=== PATIENT | female | born 1935 | race Caucasian/White ===

== ENCOUNTER → 2017-02-16 | Outpatient (CLI) | payer MEDICARE, BC ==
--- NOTE | 2017-02-17 13:52 | MM ---
Reason for exam: screening (asymptomatic). Last mammogram was performed 1 year and 1 month ago. History: Patient is postmenopausal. Ultrasound-guided cyst aspiration of the left breast, April 16, 1999. Benign excisional biopsy of the left breast. Took estrogen for 8 years. Took progesterone for 8 years. Physical Findings: A clinical breast exam by your physician is recommended on an annual basis and results should be correlated with mammographic findings. MG Screening Mammo w CAD Bilateral CC and MLO view(s) were taken. Prior study comparison: January 30, 2016, bilateral MG screening mammo w CAD. There are scattered fibroglandular densities. No significant changes when compared with prior studies. ASSESSMENT: Benign, BI-RAD 2 RECOMMENDATION: Routine screening mammogram of both breasts in 1 year.
== END | disposition home or self-care (01) ==
LOC: RADMAMWWP 14:21
PROVIDERS: ATTEND Internal Medicine
DX: Z12.31 Encounter for screening mammogram for malignant neoplasm of breast (principal)

== ENCOUNTER → 2017-03-14 | Outpatient (CLI) | payer MEDICARE, BC ==
--- NOTE | 2017-03-14 12:49 | MR ---
EXAMINATION TYPE: MR brain wo/w con DATE OF EXAM: 03/14/2017 COMPARISON: 03/01/2015 HISTORY: 82-year-old female Follow up to existing meningoma TECHNIQUE: Multiplanar, multisequence images of the brain and brainstem were acquired before and aft er administration of 15 mL IV MultiHance. Diffusion weighted imaging is performed. FINDINGS: Redemonstrated left sphenoid wing and left cavernous sinus homogeneously enhancing extra-axial mass. This measures approximately 3.0 cm AP by 1.4 cm wide. There is some bony expansion along the floor of the medial left anterior cranial fossa with slight mass effect onto the underlying inferior left fro ntal lobe, similar to prior. Linear and nodular dural extension and enhancement both posterolaterally and posteromedially measurin g up to 9 mm to both the medial aspect of the middle cranial fossa and left suprasellar region is als o stable. No evidence for acute infarction, hemorrhage, midline shift, herniation, effacement of basal cisterns , or extra-axial fluid collection. The ventricles and sulci are age-appropriate with mild generalized supratentorial volume loss. The left cavernous sinus involvement of the patient's extra-axial mass leads to a similar mild narrow ing of the cavernous segment of the left ICA. The flow voids are maintained. T2/FLAIR weighted sequences show [id number]-[id number] scattered foci of bright white matter change within the subcortical, deep, and periventricular white matter of both cerebral hemispheres. These changes are stable Midline structures demonstrate normal morphology. The craniocervical junction is normal. Post contrast images demonstrate no other evidence of pathologic enhancement. Dural venous sinuses a re patent. Mild mucosal thickening ethmoid air cells. Globes are intact. Patient gaze is slightly divergent sugg esting underlying strabismus. IMPRESSION: 1. 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 Overall size of the homog eneously enhancing lesion and adjacent linear and nodular dural thickening is unchanged. 2. This continuous to cause mild diffuse narrowing of the cavernous segment of the left ICA. The flow void is maintained. 3. Stable tobv-lj-opryeayy scattered burden of chronic T2 bright white matter change likely reflectin g chronic small vessel ischemic disease.
== END | disposition home or self-care (01) ==
LOC: RADMRIMAIN 09:49
PROVIDERS: ATTEND Neurological Surgery
DX: D32.0 Benign neoplasm of cerebral meninges (principal); I65.22 Occlusion and stenosis of left carotid artery; R90.82 White matter disease, unspecified
CPT/HCPCS: 70553; A9577

== ENCOUNTER 2017-04-26 13:56 | Emergency (ER) | payer MEDICARE, BC ==
[2017-04-26 14:05] VITALS: BP 136/72; PULSE 68; RESP 18; TEMP 98
--- NOTE | 2017-04-26 14:22 | ED ---
General Adult HPI - General Chief complaint: Skin/Abscess/Foreign Body Stated complaint: left arm swelling; several bee stings Time Seen by Provider: 04/26/17 14:10 Source: patient, RN notes reviewed Mode of arrival: ambulatory Limitations: no limitations - History of Present Illness Initial comments: Patient 82-year-old female who presents emergency room today with a chief complaint of bee sting to the left arm. Patient does admit that a week ago she was stung in the left hand and left upper arm approximate 5 times. States that seem to get better. She states she was back outside of her house doing some gardening when she was stung again 3 times in left upper arm yesterday. Patient states she was talking to a friend at [facility] today who advised her that she should come to the hospital have it checked. She states she has been using Benadryl one tablet every 6 hours for the pain in itching. Patient states redness swelling has stayed the same over the last 24 hours. Patient denies any other complaints or symptoms. Denies any difficulty breathing or swallowing. Patient denies any recent fever, chills, shortness of breath, chest pain, back pain, abdominal pain, nausea or vomiting, numbness or tingling, dysuria or hematuria, constipation or diarrhea, headaches or visual changes, or any other complaints. - Related Data Home Medications Medication Instructions Recorded Confirmed ALPRAZolam [Xanax] 0.5 mg PO BID PRN 04/29/16 04/29/16 Ascorbic Acid [Vitamin C] 500 mg PO DAILY 04/29/16 04/29/16 Aspirin EC [Ecotrin] 325 mg PO DAILY 04/29/16 04/29/16 Atenolol [Tenormin] 50 mg PO DAILY 04/29/16 04/29/16 Cholecalciferol [Vitamin D3] 2,000 unit PO DAILY 04/29/16 04/29/16 Cyanocobalamin (Vitamin B-12) 2,000 mcg PO DAILY 04/29/16 04/29/16 [Vitamin B-12] Cyanocobalamin [Vitamin B-12] 500 mcg PO DAILY 04/29/16 04/29/16 Enalapril [Vasotec] 20 mg PO DAILY 04/29/16 04/29/16 Ezetimibe [Zetia] 10 mg PO DAILY 04/29/16 04/29/16 Fish/Flax/Borax Oil 1 cap PO DAILY 04/29/16 04/29/16 L.acidoph,Paracasei, B.lactis 1 cap PO DAILY 04/29/16 04/29/16 [Probiotic] Latanoprost Ophth [Xalatan 0.005%] 1 drops BOTH EYES HS 04/29/16 04/29/16 Levothyroxine Sodium [Synthroid] 50 mcg PO DAILY 04/29/16 04/29/16 Multivit-Min/Iron/Folic/Lutein 1 tab PO DAILY 04/29/16 04/29/16 [Centrum Silver Women Tablet] Naphazoline HCl/Glycerin [Clear 1 drop BOTH EYES DAILY PRN 04/29/16 04/29/16 Eyes Max Redness Rlf Drp] Ranitidine HCl 150 mg PO BID 04/29/16 04/29/16 Ubidecarenone [Co Q-10] 100 mg PO DAILY 04/29/16 04/29/16 Vitamin E 1,000 unit PO DAILY 04/29/16 04/29/16 Previous Rx's Medication Instructions Recorded Azithromycin [Zithromax] 500 mg PO DAILY #5 tab 05/01/16 Hydrocortisone Cream 1 applic TOPICAL TID #1 cream..g. 04/26/17 [Hydrocortisone 1% Cream] Allergies Allergy/AdvReac Type Severity Reaction Status Date / Time acetaminophen [From Talacen] Allergy Unknown Verified 04/29/16 09:30 amoxicillin Allergy Unknown Verified 04/29/16 09:30 amoxicillin trihydrate Allergy Unknown Verified 04/29/16 09:30 [From Augmentin] carisoprodol [From Soma] Allergy Unknown Verified 04/29/16 09:30 ciprofloxacin [From Cipro] Allergy Unknown Verified 04/29/16 09:30 ciprofloxacin HCl Allergy Unknown Verified 04/29/16 09:30 [From Cipro] clindamycin HCl Allergy Unknown Verified 04/29/16 09:30 [From Cleocin] clindamycin palmitate HCl Allergy Unknown Verified 04/29/16 09:30 [From Cleocin] clindamycin phosphate Allergy Unknown Verified 04/29/16 09:30 [From Cleocin] cyclobenzaprine HCl Allergy Unknown Verified 04/29/16 09:30 [From Flexeril] fentanyl Allergy Unknown Verified 04/29/16 09:30 hydrocodone bitartrate Allergy Unknown Verified 04/29/16 09:30 [From Vicodin] pentazocine HCl Allergy Unknown Verified 04/29/16 09:30 [From Talacen] pentazocine lactate Allergy Unknown Verified 04/29/16 09:30 [From Talwin] potassium clavulanate Allergy Unknown Verified 04/29/16 09:30 [From Augmentin] Sulfa (Sulfonamide Allergy Unknown Verified 04/29/16 09:30 Antibiotics) sulfacetamide sodium Allergy Unknown Verified 04/29/16 09:30 [From Clarifoam EF] sulfamethoxazole Allergy Unknown Verified 04/29/16 09:30 [From Bactrim] sulfur [From Clarifoam EF] Allergy Unknown Verified 04/29/16 09:30 tramadol HCl [From Ultram] Allergy Unknown Verified 04/29/16 09:30 trimethoprim [From Bactrim] Allergy Unknown Verified 04/29/16 09:30 hexadrol Allergy Unknown Uncoded 04/29/16 09:30 Review of Systems ROS Statement: Those systems with pertinent positive or pertinent negative responses have been documented in the HPI. ROS Other: All systems not noted in ROS Statement are negative. Past Medical History Past Medical History: CVA/TIA, Eye Disorder, GERD/Reflux, Hyperlipidemia, Hypertension, Pneumonia, Thyroid Disorder Additional Past Medical History / Comment(s): 12/2014 TIA, bilateral glaucoma, benign brain tumor behind L ear, pancreatitis prior to cholecystectomy. History of Any Multi-Drug Resistant Organisms: None Reported Past Surgical History: Back Surgery, Cholecystectomy, Orthopedic Surgery Additional Past Surgical History / Comment(s): L CAROTID ENDartectomy, low back surgery x3, R carpal tunnel release, R rotator cuff repair, colonoscopy-normal. Past Anesthesia/Blood Transfusion Reactions: No Reported Reaction Past Psychological History: Depression Smoking Status: Never smoker Past Alcohol Use History: Rare Past Drug Use History: None Reported - Past Family History Mother Additional Family Medical History / Comment(s): Mother had alot of bronchitis. She at the age of 81 yrs. Father Family Medical History: Cancer Additional Family Medical History / Comment(s): Father of throat cancer at the age of 78 yrs. General Exam - General Exam Comments Initial Comments: General: The patient is awake and alert, in no distress, and does not appear acutely ill. Neck: The neck is supple, there is no tenderness or JVD. Cardiovascular: There is a regular rate and rhythm. No murmur, rub or gallop is appreciated. Respiratory: Lungs are clear to auscultation, respirations are non-labored, breath sounds are equal. No wheezes, stridor, rales, or rhonchi. Musculoskeletal: Full range motion. Sensation intact. Pulses equal bilaterally 2+. Strength 5/5. Neurological: A&O x 3. CN II-XII intact, There are no obvious motor or sensory deficits. Coordination appears grossly intact. Speech is normal. Skin: Mild redness to the left medial upper arm. No lymphangitic streaking. Psychiatric: Normal mood and affect. Limitations: no limitations Course Vital Signs 04/26/17 14:01 Temperature 98.0 F Pulse Rate 68 Respiratory 18 Rate Blood Pressure 136/72 O2 Sat by Pulse 97 Oximetry Medical Decision Making - Medical Decision Making Patient advised continue Benadryl one to tabs every 6 hours. Advised to add Pepcid. Will be given a topical steroid. At this time. Clinical exam consistent with a local reaction to bee stings. Disposition Clinical Impression: Bee sting reaction Disposition: HOME SELF-CARE Condition: Good Instructions: Insect Bite or Sting (ED) Additional Instructions: Please continue Benadryl one to 2 tablets every 6 hours. Please use Pepcid 1 tablet twice a day. Please use topical steroids as prescribed. Please follow- up with family doctor in the next 2 days of symptoms have not improved. Please return to emergency room if the symptoms increase or worsen or for any other concerns. Prescriptions: Hydrocortisone Cream [Hydrocortisone 1% Cream] 1 applic TOPICAL TID #1 cream..g. Referrals: Aurelio Barton MD [Primary Care Provider] - 1-2 days Time of Disposition: 14:21
== END 2017-04-26 14:33 | disposition home or self-care (01) ==
LOC: EC 13:56
DX: T63.441A Toxic effect of venom of bees, accidental (unintentional), initial encounter (principal); K21.9 Gastro-esophageal reflux disease without esophagitis; E78.5 Hyperlipidemia, unspecified; I10 Essential (primary) hypertension; E07.9 Disorder of thyroid, unspecified; F32.9 Major depressive disorder, single episode, unspecified; H40.9 Unspecified glaucoma; Z86.73 Personal history of transient ischemic attack (TIA), and cerebral infarction without residual deficits; Z88.0 Allergy status to penicillin; Z88.1 Allergy status to other antibiotic agents; Z88.2 Allergy status to sulfonamides; Z88.5 Allergy status to narcotic agent; Z88.8 Allergy status to other drugs, medicaments and biological substances; Z79.82 Long term (current) use of aspirin; Z79.899 Other long term (current) drug therapy
CPT/HCPCS: 99282

== ENCOUNTER → 2018-03-18 | Outpatient (CLI) | payer MEDICARE, BC ==
--- NOTE | 2018-03-19 10:32 | MM ---
Reason for exam: screening (asymptomatic). Last mammogram was performed 1 year and 1 month ago. History: Patient is postmenopausal. Ultrasound-guided cyst aspiration of the left breast, April 16, 1999. Benign excisional biopsy of the left breast. Took estrogen for 8 years. Took progesterone for 8 years. Physical Findings: A clinical breast exam by your physician is recommended on an annual basis and results should be correlated with mammographic findings. MG 3D Screening Mammo W/Cad Bilateral CC and MLO view(s) were taken. Prior study comparison: February 16, 2017, bilateral MG screening mammo w CAD. January 30, 2016, bilateral MG screening mammo w CAD. There are scattered fibroglandular densities. Stable benign calcifications. New nodule 8 cm from nipple upper left breast. ASSESSMENT: Incomplete: need additional imaging evaluation, BI-RAD 0 RECOMMENDATION: Special view mammogram of the left breast. If lesion persists on supplemental views, image directed ultrasound is recommended. [facility] will attempt to contact patient to return for supplemental views and ultrasound if indicated.
== END | disposition home or self-care (01) ==
LOC: RADMAMWWP 09:09
PROVIDERS: ATTEND Internal Medicine
DX: Z12.31 Encounter for screening mammogram for malignant neoplasm of breast (principal)
CPT/HCPCS: 77063; 77067

== ENCOUNTER → 2018-03-31 | Outpatient (CLI) | payer MEDICARE, BC ==
--- NOTE | 2018-03-31 10:30 | MM ---
Reason for exam: additional evaluation requested from abnormal screening. Last mammogram was performed less than 1 month ago. History: Patient is postmenopausal. Ultrasound-guided cyst aspiration of the left breast, April 16, 1999. Benign excisional biopsy of the left breast. Took estrogen for 8 years. Took progesterone for 8 years. Physical Findings: Nurse did not find any significant physical abnormalities on exam. MG 3D Work Up W/Cad LT Spot compression CC, spot compression MLO, and ML view(s) were taken of the left breast. Prior study comparison: March 18, 2018, bilateral MG 3d screening mammo w/cad. February 16, 2017, bilateral MG screening mammo w CAD. There are scattered fibroglandular densities. Finding: There is a 4 mm high density, circumscribed round mass located 9 cm from the nipple in the 11 o'clock upper inner quadrant, middle position of the left breast. These results were verbally communicated with the patient and result sheet given to the patient on 03/31/18. ASSESSMENT: Incomplete: need additional imaging evaluation, BI-RAD 0 RECOMMENDATION: Ultrasound of the left breast.
--- NOTE | 2018-03-31 10:31 | USB ---
Reason for exam: additional evaluation requested from abnormal screening. History: Patient is postmenopausal. Ultrasound-guided cyst aspiration of the left breast, April 16, 1999. Benign excisional biopsy of the left breast. Took estrogen for 8 years. Took progesterone for 8 years. US Breast Workup Limited LT Left limited breast ultrasound including focal area of concern, retroareolar and axilla demonstrates a 6 x 2 x 5mm lobular, hypoechoic lesion at 11 o'clock. These results were verbally communicated with the patient and result sheet given to the patient on 03/31/18. ASSESSMENT: Probably benign, BI-RAD 3 RECOMMENDATION: Follow-up diagnostic mammogram and ultrasound of the left breast in 6 months.
== END | disposition home or self-care (01) ==
LOC: RADMAMWWP 08:50
PROVIDERS: ATTEND Internal Medicine
DX: R92.8 Other abnormal and inconclusive findings on diagnostic imaging of breast (principal)
CPT/HCPCS: 77065; 76642; G0279; 77061

== ENCOUNTER → 2018-06-22 | Outpatient (CLI) | payer MEDICARE, BC ==
--- NOTE | 2018-06-22 09:31 | US ---
EXAMINATION TYPE: US liver DATE OF EXAM: 06/22/2018 COMPARISON: CT 2016 CLINICAL HISTORY: R94.5 Abnormal Results Of Liver Function Studies. EXAM MEASUREMENTS: Liver Length: 16.8 cm Gallbladder Wall: Surgically absent cm CBD: 0.3 cm Right Kidney: 11.1 x 4.0 x 4.8 cm Pancreas: Obscured by bowel gas Liver: small cyst left hepatic lobe with increased through transmission measuring 1.0 x 1.0 x 1.0 cm. There is increased echogenicity of the hepatic parenchyma with diminished visualization of the krysten l triads most commonly relating to hepatic steatosis and limiting evaluation for underlying hepatic m asses. Gallbladder: Surgically absent Evidence for sonographic Barger's sign: No CBD: wnl Right Kidney: No hydronephrosis or masses seen IMPRESSION: Sonographic findings most commonly related to hepatic steatosis (appearing moderate in de gree) with solitary 1 cm cystic left hepatic lobe lesion. This is highly favored to be benign, clementinee r was not seen on the prior CT dated 2015 and therefore short-term follow-up could be performed in 6 months to ensure stability.
== END | disposition home or self-care (01) ==
LOC: RADUSWWP 08:39
PROVIDERS: ATTEND Internal Medicine
DX: K76.89 Other specified diseases of liver (principal)
CPT/HCPCS: 76705

== ENCOUNTER 2018-06-24 09:09 | Observation (INO) | payer MEDICARE, BC ==
--- NOTE | 2018-06-24 09:36 | ED ---
General Adult HPI - General Chief complaint: Chest Pain Stated complaint: chest/back pain Time Seen by Provider: 06/24/18 09:16 Source: patient, RN notes reviewed, old records reviewed Mode of arrival: ambulatory Limitations: no limitations - History of Present Illness Initial comments: 83-year-old female presents for evaluation of chest pain. Patient's pain began yesterday evening approximately 12 hours prior to arrival. Described as substernal aching pain with some radiation to her back. Patient states the pain has been constant since onset. She went to her primary care's office this morning and was sent to the emergency department for evaluation. Denies dyspnea. Denies cough or fever or chills. Patient had previous cholecystectomy and recent liver ultrasound for elevated liver enzymes. No known history of CAD. No history DVT or PE. Denies lower extremity pain or swelling. Pain is moderate in nature. - Related Data Home Medications Medication Instructions Recorded Confirmed ALPRAZolam [Xanax] 0.5 mg PO BID PRN 04/29/16 06/24/18 Aspirin EC [Ecotrin] 325 mg PO DAILY 04/29/16 06/24/18 Atenolol [Tenormin] 50 mg PO DAILY 04/29/16 06/24/18 Enalapril [Vasotec] 20 mg PO DAILY 04/29/16 06/24/18 Ezetimibe [Zetia] 10 mg PO DAILY 04/29/16 06/24/18 Latanoprost Ophth [Xalatan 0.005%] 1 drops BOTH EYES HS 04/29/16 06/24/18 Multivit-Min/Iron/Folic/Lutein 1 tab PO DAILY 04/29/16 06/24/18 [Centrum Silver Women Tablet] Pantoprazole Sodium [Protonix] 40 mg PO DAILY 04/26/17 06/24/18 amLODIPine [Norvasc] 2.5 mg PO DAILY 04/26/17 06/24/18 Ascorbic Acid [Vitamin C] 1,000 mg PO DAILY 06/24/18 06/24/18 Cyanocobalamin (Vitamin B-12) 5,000 mcg PO DAILY 06/24/18 06/24/18 [Vitamin B-12] Dorzolamide-Timol 2.23%/0.68% 1 drop BOTH EYES BID 06/24/18 06/24/18 [Cosopt] Ergocalciferol [Vitamin D2] 50,000 unit PO Q7D 06/24/18 06/24/18 Furosemide [Lasix] 20 mg PO DAILY 06/24/18 06/24/18 Levothyroxine Sodium [Synthroid] 50 mcg PO DAILY 06/24/18 06/24/18 [place]-3 Fatty Acids/Fish Oil [Fish 1 cap PO DAILY 06/24/18 06/24/18 Oil 1,000 mg Softgel] Potassium Chloride [Klor-Con 10] 10 meq PO DAILY 06/24/18 06/24/18 Vitamin E 1,000 unit PO DAILY 06/24/18 06/24/18 Allergies Allergy/AdvReac Type Severity Reaction Status Date / Time acetaminophen [From Talacen] Allergy Unknown Verified 06/24/18 09:42 amoxicillin Allergy Unknown Verified 06/24/18 09:42 amoxicillin trihydrate Allergy Unknown Verified 06/24/18 09:42 [From Augmentin] carisoprodol [From Soma] Allergy Unknown Verified 06/24/18 09:42 ciprofloxacin [From Cipro] Allergy Unknown Verified 06/24/18 09:42 ciprofloxacin HCl Allergy Unknown Verified 06/24/18 09:42 [From Cipro] clindamycin HCl Allergy Unknown Verified 06/24/18 09:42 [From Cleocin] clindamycin palmitate HCl Allergy Unknown Verified 06/24/18 09:42 [From Cleocin] clindamycin phosphate Allergy Unknown Verified 06/24/18 09:42 [From Cleocin] cyclobenzaprine HCl Allergy Unknown Verified 06/24/18 09:42 [From Flexeril] fentanyl Allergy Unknown Verified 06/24/18 09:42 hydrocodone bitartrate Allergy Unknown Verified 06/24/18 09:42 [From Vicodin] pentazocine HCl Allergy Unknown Verified 06/24/18 09:42 [From Talacen] pentazocine lactate Allergy Unknown Verified 06/24/18 09:42 [From Talwin] potassium clavulanate Allergy Unknown Verified 06/24/18 09:42 [From Augmentin] Sulfa (Sulfonamide Allergy Unknown Verified 06/24/18 09:42 Antibiotics) sulfacetamide sodium Allergy Unknown Verified 06/24/18 09:42 [From Clarifoam EF] sulfamethoxazole Allergy Unknown Verified 06/24/18 09:42 [From Bactrim] sulfur [From Clarifoam EF] Allergy Unknown Verified 06/24/18 09:42 tramadol HCl [From Ultram] Allergy Unknown Verified 06/24/18 09:42 trimethoprim [From Bactrim] Allergy Unknown Verified 06/24/18 09:42 hexadrol Allergy Unknown Uncoded 04/29/16 09:30 Review of Systems ROS Statement: Those systems with pertinent positive or pertinent negative responses have been documented in the HPI. ROS Other: All systems not noted in ROS Statement are negative. Past Medical History Past Medical History: CVA/TIA, Eye Disorder, GERD/Reflux, Hyperlipidemia, Hypertension, Pneumonia, Thyroid Disorder Additional Past Medical History / Comment(s): 12/2014 TIA, bilateral glaucoma, benign brain tumor behind L ear, pancreatitis prior to cholecystectomy. History of Any Multi-Drug Resistant Organisms: None Reported Past Surgical History: Back Surgery, Cholecystectomy, Orthopedic Surgery Additional Past Surgical History / Comment(s): L CAROTID ENDartectomy, low back surgery x3, R carpal tunnel release, R rotator cuff repair, colonoscopy-normal. Past Anesthesia/Blood Transfusion Reactions: No Reported Reaction Past Psychological History: Depression Smoking Status: Never smoker Past Alcohol Use History: Rare Past Drug Use History: None Reported - Past Family History Mother Additional Family Medical History / Comment(s): Mother had alot of bronchitis. She at the age of 81 yrs. Father Family Medical History: Cancer Additional Family Medical History / Comment(s): Father of throat cancer at the age of 78 yrs. General Exam Limitations: no limitations General appearance: alert Head exam: Present: atraumatic, normocephalic Eye exam: Present: normal appearance, PERRL, EOMI ENT exam: Present: normal exam Neck exam: Present: normal inspection. Absent: tenderness, meningismus Respiratory exam: Present: normal lung sounds bilaterally. Absent: respiratory distress, wheezes, chest wall tenderness Cardiovascular Exam: Present: regular rate, normal rhythm GI/Abdominal exam: Present: soft. Absent: distended, tenderness Extremities exam: Present: normal inspection, normal capillary refill, other ( Bilateral radial pulses 2+, bilateral DP pulses 2+). Absent: pedal edema Back exam: Present: normal inspection, full ROM. Absent: tenderness Neurological exam: Present: alert, oriented X3, CN II-XII intact. Absent: motor sensory deficit Psychiatric exam: Present: normal affect, normal mood Skin exam: Present: warm, dry, intact. Absent: cyanosis, diaphoretic Course Vital Signs 06/24/18 09:12 Temperature 98.4 F Pulse Rate 71 Respiratory 20 Rate Blood Pressure 151/79 O2 Sat by Pulse 98 Oximetry EKG Findings - EKG Comments: EKG Findings:: EKG: Normal sinus rhythm, left axis deviation, LVH, rate of 62, IL interval 204, QRS duration 98, QTC 414 Medical Decision Making - Medical Decision Making 83-year-old female presenting for evaluation of chest pain. EKG is normal sinus with no ST segment elevation. Symptoms have been present for the past 12 hours. Patient has normal CBC, CMP is significant for elevated AST and PLT. Troponin is negative which is reassuring as patient's symptoms have been present for 12 hours. Chest x-ray shows some left basilar atelectasis no other acute findings. Patient will be kept in observation for both GI and cardiology consultation. Case discussed with the admitting physician who will accept. - Lab Data Result diagrams: 06/24/18 09:41 06/24/18 09:41 Lab Results 06/24/18 06/24/18 06/24/18 Range/Units 09:41 09:41 09:41 WBC 10.3 (3.8-10.6) k/uL RBC 4.65 (3.80-5.40) m/uL Hgb 15.3 (11.4-16.0) gm/dL Hct 44.7 (34.0-46.0) % MCV 96.1 D (80.0-100.0) fL MCH 33.0 (25.0-35.0) pg MCHC 34.3 (31.0-37.0) g/dL RDW 12.4 (11.5-15.5) % Plt Count 226 (150-450) k/uL Neutrophils % 63 % Lymphocytes % 24 % Monocytes % 8 % Eosinophils % 2 % Basophils % 1 % Neutrophils # 6.5 (1.3-7.7) k/uL Lymphocytes # 2.5 (1.0-4.8) k/uL Monocytes # 0.8 (0-1.0) k/uL Eosinophils # 0.2 (0-0.7) k/uL Basophils # 0.1 (0-0.2) k/uL PT (9.0-12.0) sec INR (<1.2) APTT (22.0-30.0) sec Sodium 138 (137-145) mmol/L Potassium 5.1 (3.5-5.1) mmol/L Chloride 104 (98-107) mmol/L Carbon Dioxide 23 (22-30) mmol/L Anion Gap 11 mmol/L BUN 27 H (7-17) mg/dL Creatinine 0.63 (0.52-1.04) mg/dL Est GFR (CKD-EPI)AfAm >90 (>60 ml/min/1.73 sqM) Est GFR (CKD-EPI)NonAf 84 (>60 ml/min/1.73 sqM) Glucose 205 H (74-99) mg/dL Calcium 10.2 (8.4-10.2) mg/dL Magnesium 1.9 (1.6-2.3) mg/dL Total Bilirubin 0.8 (0.2-1.3) mg/dL AST 126 H (14-36) U/L ALT 112 H (9-52) U/L Alkaline Phosphatase 100 (38-126) U/L Total Creatine Kinase 130 (30-135) U/L CK-MB (CK-2) 3.0 H (0.0-2.4) ng/mL CK-MB (CK-2) Rel Index 2.3 Troponin I <0.012 (0.000-0.034) ng/mL NT-Pro-B Natriuret Pep pg/mL Total Protein 7.7 (6.3-8.2) g/dL Albumin 4.3 (3.5-5.0) g/dL Lipase 120 (23-300) U/L 06/24/18 06/24/18 Range/Units 09:41 09:41 WBC (3.8-10.6) k/uL RBC (3.80-5.40) m/uL Hgb (11.4-16.0) gm/dL Hct (34.0-46.0) % MCV (80.0-100.0) fL MCH (25.0-35.0) pg MCHC (31.0-37.0) g/dL RDW (11.5-15.5) % Plt Count (150-450) k/uL Neutrophils % % Lymphocytes % % Monocytes % % Eosinophils % % Basophils % % Neutrophils # (1.3-7.7) k/uL Lymphocytes # (1.0-4.8) k/uL Monocytes # (0-1.0) k/uL Eosinophils # (0-0.7) k/uL Basophils # (0-0.2) k/uL PT 10.3 (9.0-12.0) sec INR 1.1 (<1.2) APTT 24.1 (22.0-30.0) sec Sodium (137-145) mmol/L Potassium (3.5-5.1) mmol/L Chloride (98-107) mmol/L Carbon Dioxide (22-30) mmol/L Anion Gap mmol/L BUN (7-17) mg/dL Creatinine (0.52-1.04) mg/dL Est GFR (CKD-EPI)AfAm (>60 ml/min/1.73 sqM) Est GFR (CKD-EPI)NonAf (>60 ml/min/1.73 sqM) Glucose (74-99) mg/dL Calcium (8.4-10.2) mg/dL Magnesium (1.6-2.3) mg/dL Total Bilirubin (0.2-1.3) mg/dL AST (14-36) U/L ALT (9-52) U/L Alkaline Phosphatase (38-126) U/L Total Creatine Kinase (30-135) U/L CK-MB (CK-2) (0.0-2.4) ng/mL CK-MB (CK-2) Rel Index Troponin I (0.000-0.034) ng/mL NT-Pro-B Natriuret Pep 55 pg/mL Total Protein (6.3-8.2) g/dL Albumin (3.5-5.0) g/dL Lipase (23-300) U/L Disposition Clinical Impression: Chest pain Disposition: ADMITTED IP TO THIS [facility] Condition: Stable Is patient prescribed a controlled substance at d/c from ED?: No Referrals: Aurelio Barton MD [Primary Care Provider] - 1-2 days Decision to Admit Reason: Admit from EC Decision Date: 06/24/18 Decision Time: 11:28
--- NOTE | 2018-06-24 10:15 | XR ---
EXAMINATION TYPE: XR chest 2V DATE OF EXAM: 06/24/2018 COMPARISON: 04/29/2016 HISTORY: 83-year-old female chest pain TECHNIQUE: PA and lateral views FINDINGS: Heart normal size. Aorta and pulmonary vasculature within normal limits. Strandy atelectasis at the l eft base. No consolidation or pleural effusion. IMPRESSION: Some strandy left basilar atelectasis. No acute cardiopulmonary process.
[2018-06-24 10:18] LABS: Albumin 4.3 g/dL (3.5-5.0); Anion Gap 11 mmol/L; Basophils # (A) 0.1 k/uL (0-0.2); Basophils % (A) 1 %; Blood Urea Nitrogen 27 mg/dL (7-17); Calcium 10.2 mg/dL (8.4-10.2); Carbon Dioxide 23 mmol/L (22-30); Chloride 104 mmol/L (98-107); Eosinophils # (A) 0.2 k/uL (0-0.7); Eosinophils % (A) 2 %; Glucose 205 mg/dL (74-99); HCT 44.7 % (34.0-46.0); HGB 15.3 gm/dL (11.4-16.0); Lipase 120 U/L (23-300); Lymphocytes # (A) 2.5 k/uL (1.0-4.8); Lymphocytes % (A) 24 %; MCHC 34.3 g/dL (31.0-37.0); Mean Platelet Volume 7.5; Monocytes # (A) 0.8 k/uL (0-1.0); Monocytes % (A) 8 %; Neutrophils # (A) 6.5 k/uL (1.3-7.7); Neutrophils % (A) 63 %; Platelet Count 226 k/uL (150-450); RBC 4.65 m/uL (3.80-5.40); RDW 12.4 % (11.5-15.5); Sodium 138 mmol/L (137-145); Total Bilirubin 0.8 mg/dL (0.2-1.3); Total Protein 7.7 g/dL (6.3-8.2); WBC 10.3 k/uL (3.8-10.6)
[2018-06-24 10:19] LABS: MCV 96.1 fL (80.0-100.0)
[2018-06-24 10:20] LABS: INR 1.1 (<1.2); Prothrombin Time 10.3 sec (9.0-12.0)
[2018-06-24 10:21] LABS: Partial Thromboplastin Time 24.1 sec (22.0-30.0)
[2018-06-24 10:26] LABS: ALT 112 U/L (9-52); AST 126 U/L (14-36); Alkaline Phosphatase 100 U/L (38-126); Magnesium 1.9 mg/dL (1.6-2.3); Potassium 5.1 mmol/L (3.5-5.1)
[2018-06-24 10:35] LABS: Creatine Kinase 130 U/L (30-135)
[2018-06-24 10:48] LABS: Troponin I <0.012 ng/mL (0.000-0.034)
[2018-06-24] MEDS ORDERED: NALOXONE 0.4 MG/ML 1 ML VIAL IV PRN (11:24)
--- NOTE | 2018-06-24 15:14 | P.HPIM ---
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 Patient also had a left carotid and 2 lower back surgeries. Denies any alcohol or tobacco use. Patient reports around 9:30 last night she started to have chest pains in the sternal area of her chest. It radiated to the back and around her bra line. Patient reports that she did not sleep well during the night because of the pain. She went to see Dr. Barton in the office early this morning and was referred to the ER. In first troponin is negative. EKG normal sinus rhythm. Chest x-ray showing left basilar atelectasis. She was found to have elevated AST of 126 and ALT 112. She had liver ultrasound completed on 06/22/2018 outpatient due to elevated liver enzymes and report did show hepatic steatosis with a solitary 1 cm cystic hepatic lobe lesion which was likely benign but they recommend recheck in 6 months. Her lipase is normal. On exam she does have epigastric tenderness with palpation. Both GI service and cardiology have been consulted. Patient denies any fever, chills, sweats, nausea or vomiting. Denies any bowel movement changes or urinary symptoms. She does report some increase in shortness of breath with activity. Patient reports her last EGD and colonoscopy about a year and a half ago. She reports the EGD was normal. On colonoscopy she reported a dilated vein in the colon that had bled. Review of Systems Please refer to HPI otherwise unremarkable Past Medical History Past Medical History: CVA/TIA, Eye Disorder, GERD/Reflux, Hyperlipidemia, Hypertension, Pneumonia, Thyroid Disorder, Vascular Disorder Additional Past Medical History / Comment(s): Recent elevated LFT/had recent ultrasound, 12/2014 TIA, bilateral glaucoma and cataracts, benign brain tumor behind L ear, pancreatitis prior to cholecystectomy, hypothyroid, diverticular dx. History of Any Multi-Drug Resistant Organisms: None Reported Past Surgical History: Back Surgery, Cholecystectomy, Orthopedic Surgery Additional Past Surgical History / Comment(s): L caratid endartectomy, low back surgery x3, R carpal tunnel release, R rotator cuff repair, colonoscopy-normal. Past Anesthesia/Blood Transfusion Reactions: Postoperative Nausea & Vomiting ( PONV) Smoking Status: Never smoker - Past Family History Mother Additional Family Medical History / Comment(s): Mother had alot of bronchitis. She at the age of 81 yrs. Father Family Medical History: Cancer Additional Family Medical History / Comment(s): Father of throat cancer at the age of 78 yrs. Medications and Allergies Home Medications Medication Instructions Recorded Confirmed Type ALPRAZolam [Xanax] 0.5 mg PO BID PRN 04/29/16 06/24/18 History Aspirin EC [Ecotrin] 325 mg PO DAILY 04/29/16 06/24/18 History Atenolol [Tenormin] 50 mg PO DAILY 04/29/16 06/24/18 History Enalapril [Vasotec] 20 mg PO DAILY 04/29/16 06/24/18 History Ezetimibe [Zetia] 10 mg PO DAILY 04/29/16 06/24/18 History Latanoprost Ophth [Xalatan 0.005%] 1 drops BOTH EYES HS 04/29/16 06/24/18 History Multivit-Min/Iron/Folic/Lutein 1 tab PO DAILY 04/29/16 06/24/18 History [Centrum Silver Women Tablet] Pantoprazole Sodium [Protonix] 40 mg PO DAILY 04/26/17 06/24/18 History amLODIPine [Norvasc] 2.5 mg PO DAILY 04/26/17 06/24/18 History Ascorbic Acid [Vitamin C] 1,000 mg PO DAILY 06/24/18 06/24/18 History Cyanocobalamin (Vitamin B-12) 5,000 mcg PO DAILY 06/24/18 06/24/18 History [Vitamin B-12] Dorzolamide-Timol 2.23%/0.68% 1 drop BOTH EYES BID 06/24/18 06/24/18 History [Cosopt] Ergocalciferol [Vitamin D2] 50,000 unit PO Q7D 06/24/18 06/24/18 History Furosemide [Lasix] 20 mg PO DAILY 06/24/18 06/24/18 History Levothyroxine Sodium [Synthroid] 50 mcg PO DAILY 06/24/18 06/24/18 History [place]-3 Fatty Acids/Fish Oil [Fish 1 cap PO DAILY 06/24/18 06/24/18 History Oil 1,000 mg Softgel] Potassium Chloride [Klor-Con 10] 10 meq PO DAILY 06/24/18 06/24/18 History Vitamin E 1,000 unit PO DAILY 06/24/18 06/24/18 History Allergies Allergy/AdvReac Type Severity Reaction Status Date / Time acetaminophen [From Talacen] Allergy Unknown Verified 06/24/18 09:42 amoxicillin Allergy Unknown Verified 06/24/18 09:42 amoxicillin trihydrate Allergy Unknown Verified 06/24/18 09:42 [From Augmentin] carisoprodol [From Soma] Allergy Unknown Verified 06/24/18 09:42 ciprofloxacin [From Cipro] Allergy Unknown Verified 06/24/18 09:42 ciprofloxacin HCl Allergy Unknown Verified 06/24/18 09:42 [From Cipro] clindamycin HCl Allergy Unknown Verified 06/24/18 09:42 [From Cleocin] clindamycin palmitate HCl Allergy Unknown Verified 06/24/18 09:42 [From Cleocin] clindamycin phosphate Allergy Unknown Verified 06/24/18 09:42 [From Cleocin] cyclobenzaprine HCl Allergy Unknown Verified 06/24/18 09:42 [From Flexeril] fentanyl Allergy Unknown Verified 06/24/18 09:42 hydrocodone bitartrate Allergy Unknown Verified 06/24/18 09:42 [From Vicodin] pentazocine HCl Allergy Unknown Verified 06/24/18 09:42 [From Talacen] pentazocine lactate Allergy Unknown Verified 06/24/18 09:42 [From Talwin] potassium clavulanate Allergy Unknown Verified 06/24/18 09:42 [From Augmentin] Sulfa (Sulfonamide Allergy Unknown Verified 06/24/18 09:42 Antibiotics) sulfacetamide sodium Allergy Unknown Verified 06/24/18 09:42 [From Clarifoam EF] sulfamethoxazole Allergy Unknown Verified 06/24/18 09:42 [From Bactrim] sulfur [From Clarifoam EF] Allergy Unknown Verified 06/24/18 09:42 tramadol HCl [From Ultram] Allergy Unknown Verified 06/24/18 09:42 trimethoprim [From Bactrim] Allergy Unknown Verified 06/24/18 09:42 hexadrol Allergy Unknown Uncoded 04/29/16 09:30 Physical Exam Vitals: Vital Signs Temp Pulse Resp BP Pulse Ox 06/24/18 13:29 97.9 F 58 L 18 126/68 98 06/24/18 09:12 98.4 F 71 20 151/79 98 Intake and Output 06/24/18 06/24/18 06/24/18 06:59 14:59 22:59 Other: Weight 86.183 kg Head normocephalic Neck supple Lungs clear to auscultation bilaterally no wheezing or crackles Heart regular rate and rhythm S1-S2, no rub or gallop Abdomen is soft epigastric tenderness tender along the right rib cage nondistended positive bowel sounds no hepatosplenomegaly Extremities no edema Neuro alert and orientated to 3 Results CBC & Chem 7: 06/24/18 09:41 06/24/18 09:41 Labs: Abnormal Lab Results - Last 24 Hours (Table) 06/24/18 06/24/18 Range/Units 09:41 09:41 BUN 27 H (7-17) mg/dL Glucose 205 H (74-99) mg/dL AST 126 H (14-36) U/L ALT 112 H (9-52) U/L CK-MB (CK-2) 3.0 H (0.0-2.4) ng/mL Thrombosis Risk Factor Assmnt - Choose All That Apply Any of the Below Risk Factors Present?: Yes Each Factor Represents 1 point: Obesity (BMI >25) Other Risk Factors: Yes Each Risk Factor Represents 3 Points: Age 75 years or older Other congenital or acquired thrombophilia - If yes, enter type in comment: No Thrombosis Risk Factor Assessment Total Risk Factor Score: 4 Thrombosis Risk Factor Assessment Level: Moderate Risk Assessment and Plan Assessment: 1. Chest pain: Troponin negative 1. EKG normal sinus rhythm. Continue to monitor cardiac enzymes. Cardiology has been consulted 2. Elevated LFTs with epigastric abdominal pain. Lipase is normal. Liver ultrasound from 06/22/2018 shows hepatic steatosis solitary 1 cm cystic hepatic lobe lesion which is likely benign. Recommend follow-up in 6 months. GI service will be consulted. Repeat LFTs in a.m. Patient denies any alcohol use. Discontinuing the Zetia 3. History of gallstone pancreatitis with cholecystectomy several years ago 4. History of TIA 5. History of a left carotid endarterectomy 6. Hypertension continue Norvasc, atenolol and lisinopril 7. Hypothyroidism continue Synthroid 8. Bilateral glaucoma GI and DVT prophylaxis Protonix and subcu heparin Time with Patient: Greater than 30 (Greater than 60% of the total time spent in counseling and coordination of care.I performed an examination of the patient and discussed their management with the physician Automatic Drilling Machine Operator. I have reviewed the Physician Automatic Drilling Machine Operator's notes and agree with the documented findings and plan of care)
[2018-06-24 15:39] LABS: Creatine Kinase 110 U/L (30-135)
[2018-06-24 15:52] LABS: Creatine Kinase MB 2.8 ng/mL (0.0-2.4); Troponin I <0.012 ng/mL (0.000-0.034)
--- NOTE | 2018-06-24 17:13 | P.HPIM ---
History of Present Illness H&P Date: 06/24/18 Patient seen and examined Full H&P Dictated By Lizzy MONTENEGRO Presenting with chest pain and elevated liver enzymes Admit to OBV, serial EKGs and cardiac enzymes Liver ultrasound done recently reveals liver steatosis and a liver cyst, GI consultation requested Past Medical History Past Medical History: CVA/TIA, Eye Disorder, GERD/Reflux, Hyperlipidemia, Hypertension, Pneumonia, Thyroid Disorder, Vascular Disorder Additional Past Medical History / Comment(s): Recent elevated LFT/had recent ultrasound, 12/2014 TIA, bilateral glaucoma and cataracts, benign brain tumor behind L ear, pancreatitis prior to cholecystectomy, hypothyroid, diverticular dx. History of Any Multi-Drug Resistant Organisms: None Reported Past Surgical History: Back Surgery, Cholecystectomy, Orthopedic Surgery Additional Past Surgical History / Comment(s): L caratid endartectomy, low back surgery x3, R carpal tunnel release, R rotator cuff repair, colonoscopy-normal. Past Anesthesia/Blood Transfusion Reactions: Postoperative Nausea & Vomiting ( PONV) Smoking Status: Never smoker - Past Family History Mother Additional Family Medical History / Comment(s): Mother had alot of bronchitis. She at the age of 81 yrs. Father Family Medical History: Cancer Additional Family Medical History / Comment(s): Father of throat cancer at the age of 78 yrs. Medications and Allergies Home Medications Medication Instructions Recorded Confirmed Type ALPRAZolam [Xanax] 0.5 mg PO BID PRN 04/29/16 06/24/18 History Aspirin EC [Ecotrin] 325 mg PO DAILY 04/29/16 06/24/18 History Atenolol [Tenormin] 50 mg PO DAILY 04/29/16 06/24/18 History Enalapril [Vasotec] 20 mg PO DAILY 04/29/16 06/24/18 History Ezetimibe [Zetia] 10 mg PO DAILY 04/29/16 06/24/18 History Latanoprost Ophth [Xalatan 0.005%] 1 drops BOTH EYES HS 04/29/16 06/24/18 History Multivit-Min/Iron/Folic/Lutein 1 tab PO DAILY 04/29/16 06/24/18 History [Centrum Silver Women Tablet] Pantoprazole Sodium [Protonix] 40 mg PO DAILY 04/26/17 06/24/18 History amLODIPine [Norvasc] 2.5 mg PO DAILY 04/26/17 06/24/18 History Ascorbic Acid [Vitamin C] 1,000 mg PO DAILY 06/24/18 06/24/18 History Cyanocobalamin (Vitamin B-12) 5,000 mcg PO DAILY 06/24/18 06/24/18 History [Vitamin B-12] Dorzolamide-Timol 2.23%/0.68% 1 drop BOTH EYES BID 06/24/18 06/24/18 History [Cosopt] Ergocalciferol [Vitamin D2] 50,000 unit PO Q7D 06/24/18 06/24/18 History Furosemide [Lasix] 20 mg PO DAILY 06/24/18 06/24/18 History Levothyroxine Sodium [Synthroid] 50 mcg PO DAILY 06/24/18 06/24/18 History [place]-3 Fatty Acids/Fish Oil [Fish 1 cap PO DAILY 06/24/18 06/24/18 History Oil 1,000 mg Softgel] Potassium Chloride [Klor-Con 10] 10 meq PO DAILY 06/24/18 06/24/18 History Vitamin E 1,000 unit PO DAILY 06/24/18 06/24/18 History Allergies Allergy/AdvReac Type Severity Reaction Status Date / Time acetaminophen [From Talacen] Allergy Unknown Verified 06/24/18 09:42 amoxicillin Allergy Unknown Verified 06/24/18 09:42 amoxicillin trihydrate Allergy Unknown Verified 06/24/18 09:42 [From Augmentin] carisoprodol [From Soma] Allergy Unknown Verified 06/24/18 09:42 ciprofloxacin [From Cipro] Allergy Unknown Verified 06/24/18 09:42 ciprofloxacin HCl Allergy Unknown Verified 06/24/18 09:42 [From Cipro] clindamycin HCl Allergy Unknown Verified 06/24/18 09:42 [From Cleocin] clindamycin palmitate HCl Allergy Unknown Verified 06/24/18 09:42 [From Cleocin] clindamycin phosphate Allergy Unknown Verified 06/24/18 09:42 [From Cleocin] cyclobenzaprine HCl Allergy Unknown Verified 06/24/18 09:42 [From Flexeril] fentanyl Allergy Unknown Verified 06/24/18 09:42 hydrocodone bitartrate Allergy Unknown Verified 06/24/18 09:42 [From Vicodin] pentazocine HCl Allergy Unknown Verified 06/24/18 09:42 [From Talacen] pentazocine lactate Allergy Unknown Verified 06/24/18 09:42 [From Talwin] potassium clavulanate Allergy Unknown Verified 06/24/18 09:42 [From Augmentin] Sulfa (Sulfonamide Allergy Unknown Verified 06/24/18 09:42 Antibiotics) sulfacetamide sodium Allergy Unknown Verified 06/24/18 09:42 [From Clarifoam EF] sulfamethoxazole Allergy Unknown Verified 06/24/18 09:42 [From Bactrim] sulfur [From Clarifoam EF] Allergy Unknown Verified 06/24/18 09:42 tramadol HCl [From Ultram] Allergy Unknown Verified 06/24/18 09:42 trimethoprim [From Bactrim] Allergy Unknown Verified 06/24/18 09:42 hexadrol Allergy Unknown Uncoded 04/29/16 09:30 Physical Exam Vitals: Vital Signs Temp Pulse Resp BP Pulse Ox 06/24/18 17:00 64 18 126/69 06/24/18 16:00 64 18 147/68 97 06/24/18 15:00 58 L 19 124/69 96 06/24/18 14:00 60 18 130/68 97 06/24/18 13:29 97.9 F 58 L 18 126/68 98 06/24/18 09:12 98.4 F 71 20 151/79 98 Intake and Output 06/24/18 06/24/18 06/24/18 06:59 14:59 22:59 Other: Weight 86.183 kg Results CBC & Chem 7: 06/24/18 09:41 06/24/18 09:41 Labs: Abnormal Lab Results - Last 24 Hours (Table) 06/24/18 06/24/18 06/24/18 Range/Units 09:41 09:41 15:04 BUN 27 H (7-17) mg/dL Glucose 205 H (74-99) mg/dL AST 126 H (14-36) U/L ALT 112 H (9-52) U/L CK-MB (CK-2) 3.0 H 2.8 H (0.0-2.4) ng/mL Thrombosis Risk Factor Assmnt - Choose All That Apply Any of the Below Risk Factors Present?: Yes Each Factor Represents 1 point: Obesity (BMI >25) Other Risk Factors: Yes Each Risk Factor Represents 3 Points: Age 75 years or older Other congenital or acquired thrombophilia - If yes, enter type in comment: No Thrombosis Risk Factor Assessment Total Risk Factor Score: 4 Thrombosis Risk Factor Assessment Level: Moderate Risk
[2018-06-24] MEDS ORDERED: ERGOCALCIFEROL 50,000 UNIT CAP PO SCH (18:00)
[2018-06-24] MEDS: LATANOPROST 0.005% OPHTH DROPS 2.5 ML BTL BOTH EYES SCH (21:32)
[2018-06-24] MEDS: DORZOLAMIDE-TIMOLOL 2.23%/0.68 10ML BTL BOTH EYES SCH (21:32)
[2018-06-24] MEDS: HEPARIN SODIUM,PORCINE 5,000 UNIT/ML 1 ML VIAL SQ SCH (21:32)
[2018-06-24] MEDS: ALPRAZolam 0.5 MG TAB PO PRN (21:49)
[2018-06-24 22:37] LABS: Creatine Kinase 119 U/L (30-135)
[2018-06-24 22:46] LABS: Creatine Kinase MB 2.5 ng/mL (0.0-2.4); Troponin I <0.012 ng/mL (0.000-0.034)
[2018-06-25] MEDS: LEVOTHYROXINE 50 MCG TAB PO SCH (04:02)
[2018-06-25 07:49] LABS: Basophils # (A) 0.1 k/uL (0-0.2); Basophils % (A) 1 %; Eosinophils # (A) 0.2 k/uL (0-0.7); Eosinophils % (A) 2 %; Lymphocytes # (A) 3.1 k/uL (1.0-4.8); Lymphocytes % (A) 31 %; MCH 32.4 pg (25.0-35.0); MCHC 33.4 g/dL (31.0-37.0); Monocytes # (A) 0.9 k/uL (0-1.0); Monocytes % (A) 9 %; Neutrophils # (A) 5.4 k/uL (1.3-7.7); Neutrophils % (A) 54 %; Platelet Count 195 k/uL (150-450); RBC 4.33 m/uL (3.80-5.40); RDW 12.5 % (11.5-15.5); WBC 9.9 k/uL (3.8-10.6)
[2018-06-25 07:59] LABS: Albumin 3.7 g/dL (3.5-5.0); Calcium 9.9 mg/dL (8.4-10.2); Potassium 5.8 mmol/L (3.5-5.1); Total Bilirubin 0.6 mg/dL (0.2-1.3); Total Protein 6.7 g/dL (6.3-8.2)
[2018-06-25] MEDS ORDERED: IOPAMIDOL-300 CONTRAST 30 ML VIAL (ORAL USE) PO PRN (08:38)
[2018-06-25] MEDS ORDERED: PANTOPRAZOLE 40 MG/10 ML VIAL IV SCH (09:00)
[2018-06-25] MEDS ORDERED: POTASSIUM CHLORIDE ER 10 MEQ TAB.ER.PRT PO SCH (09:00)
[2018-06-25] MEDS ORDERED: LISINOPRIL 20 MG TAB PO SCH (09:00)
--- NOTE | 2018-06-25 10:07 | P.CRDCN ---
History of Present Illness History of present illness: Mrs. Elizalde is a pleasant 83-year-old female past medical history significant for hypertension, dyslipidemia, carotid endartectomy, peripheral vascular disease, hypothyroidism and history of gallstone panceratitis s/p cholectomy. She denies history of coronary artery disease and has never seen a consumer studies professor for any reason. We have been asked to see her in consultation for chest pain. She states Thursday while she was at home sitting in her recliner she started feeling a discomfort in her mid-sternal lower anterior chest wall that radiated around underneath both of her breasts and straight through to her back. The pain was constant with no specific aggravating or alleviating factor. She attempted to take TUms on 2 separate occasion with no relief noted. She woke up morning still feeling these symptoms so she went to Dr. Barton's office for evaluation and was sent directly to the hospital. At the time of my exam she is seen sitting in bed in no acute distress. She also has been feeling an epigastric discomfort that is acutely tender on palpitation. She has had elevated liver enzymes in the recent past and underwent ultrasound of the liver revealing hepatic steatosis and moderate degree with 1 cm cystic lesion in the left hepatic lobe. She has had no shortness of breath, dizziness, palpitations, nausea or vomiting. EKG reveals sinus mechanism with left axis deviation no acute ST or T-wave abnormalities. Chest xray reveals strandy left basilar atelectasis with no acute process. Laboratory data reviewed, hemoglobin 14, platelets 195, sodium 140, potassium 5.8, creatinine 0.79, AST 114, ALT 109, cardiac enzymes negative 3, NT proBNP 55, lipase 120. Current cardiac medications include Lasix 20 mg daily, potassium supplementation daily, enalapril 20 mg daily, study at 10 mg daily, aspirin 325 mg daily, atenolol 50 mg daily and amlodipine 2.5 mg daily. At the time of my exam: CONSTITUTIONAL: Denies fever. Denies chills. EYES: Denies blurred vision. Denies vision changes. Denies eye pain. EARS, NOSE, MOUTH & THROAT: Denies headache. Denies sore throat. Denies ear pain. CARDIOVASCULAR: Denies chest pain. Denies shortness of breath. Denies orthopnea. Denies PND. Denies palpitations. RESPIRATORY: Denies cough. GASTROINTESTINAL: Complains of epigastric tenderness. Denies diarrhea. Denies constipation. Denies nausea. Denies vomiting. MUSCULOSKELETAL: Denies myalgias. INTEGUMENTARY: Denies pruitis. Denies rash. NEUROLOGIC: Denies numbness. Denies tingling. Denies weakness. PSYCHIATRIC: Denies anxiety. Denies depression. ENDOCRINE: Denies fatigue. Denies weight change. Denies polydipsia. Denies polyurina. GENITOURINARY: Denies burning, hematuria or urgency with micturation. HEMATOLOGIC: Denies history of anemia. Denies bleeding. Blood pressure 119/74 heart rate 69 afebrile maintaining oxygen saturation on room air GENERAL: This is a 70-year-old female in no apparent distress at the time of my examination. HEENT: Head is atraumatic, normocephalic. Pupils are equal, round. Sclerae anicteric. Conjunctivae are clear. Mucous membranes of the mouth are moist. Neck is supple. There is no jugular venous distention. No carotid bruit is heard. LUNGS: Clear to auscultation no wheezes, rales or rhonchi. No chest wall tenderness is noted on palpation or with deep breathing. HEART: Regular rate and rhythm without murmurs, rubs or gallops. S1 and S2 heard. ABDOMEN: Soft, nontender. Bowel sounds are heard. No organomegaly noted. EXTREMITIES: No evidence of peripheral edema and no calf tenderness noted. VASCULAR: Radial and dorsalis pedis pulses palpated, no evidence of clubbing. NEUROLOGIC: Patient is awake, alert and oriented x3. ASSESSMENT Chest pain, atypical. An acute coronary event has been ruled out with no EKG evidence of ischemia and negative cardiac enzymes. Epigastric tenderness, ongoing and unrelieved by Tums Elevated liver enzymes Hyperkalemia Hypertension Dyslipidemia Gastroesophageal reflux disease Peripheral vascular disease History of left carotid endartectomy 2016 PLAN An acute coronary event has been ruled out with no EKG evidence of ischemica and negative cardiac enzymes. Hold potassium supplementation. Check lipid profile. Obtain 2D echocardiogram and doppler study to assess cardiac structure and function. Hydrate her with 0.9% sodium chloride at 75 cc an hour. Perform CT chest and abdomen with oral and IV contrast to assess aorta and epigastric tenderness. She will require further cardiac work-up as an outpatient, however ongoing management per GI regarding current symptoms of epigastric tenderness. Follow up with Dr. Stearns in 2-3 weeks. Thank you kindly for this consultation. Nurse Practitioner note has been reviewed, I agree with a documented findings and plan of care. Patient was seen and examined. Past Medical History Past Medical History: CVA/TIA, Eye Disorder, GERD/Reflux, Hyperlipidemia, Hypertension, Pneumonia, Thyroid Disorder, Vascular Disorder Additional Past Medical History / Comment(s): Recent elevated LFT/had recent ultrasound, 12/2014 TIA, bilateral glaucoma and cataracts, benign brain tumor behind L ear, pancreatitis prior to cholecystectomy, hypothyroid, diverticular dx. History of Any Multi-Drug Resistant Organisms: None Reported Past Surgical History: Back Surgery, Cholecystectomy, Orthopedic Surgery Additional Past Surgical History / Comment(s): L caratid endartectomy, low back surgery x3, R carpal tunnel release, R rotator cuff repair, colonoscopy-normal. Past Anesthesia/Blood Transfusion Reactions: Postoperative Nausea & Vomiting ( PONV) Smoking Status: Never smoker - Past Family History Mother Additional Family Medical History / Comment(s): Mother had alot of bronchitis. She at the age of 81 yrs. Father Family Medical History: Cancer Additional Family Medical History / Comment(s): Father of throat cancer at the age of 78 yrs. Medications and Allergies Home Medications Medication Instructions Recorded Confirmed Type ALPRAZolam [Xanax] 0.5 mg PO BID PRN 04/29/16 06/24/18 History Aspirin EC [Ecotrin] 325 mg PO DAILY 04/29/16 06/24/18 History Atenolol [Tenormin] 50 mg PO DAILY 04/29/16 06/24/18 History Enalapril [Vasotec] 20 mg PO DAILY 04/29/16 06/24/18 History Ezetimibe [Zetia] 10 mg PO DAILY 04/29/16 06/24/18 History Latanoprost Ophth [Xalatan 0.005%] 1 drops BOTH EYES HS 04/29/16 06/24/18 History Multivit-Min/Iron/Folic/Lutein 1 tab PO DAILY 04/29/16 06/24/18 History [Centrum Silver Women Tablet] Pantoprazole Sodium [Protonix] 40 mg PO DAILY 04/26/17 06/24/18 History amLODIPine [Norvasc] 2.5 mg PO DAILY 04/26/17 06/24/18 History Ascorbic Acid [Vitamin C] 1,000 mg PO DAILY 06/24/18 06/24/18 History Cyanocobalamin (Vitamin B-12) 5,000 mcg PO DAILY 06/24/18 06/24/18 History [Vitamin B-12] Dorzolamide-Timol 2.23%/0.68% 1 drop BOTH EYES BID 06/24/18 06/24/18 History [Cosopt] Ergocalciferol [Vitamin D2] 50,000 unit PO Q7D 06/24/18 06/24/18 History Furosemide [Lasix] 20 mg PO DAILY 06/24/18 06/24/18 History Levothyroxine Sodium [Synthroid] 50 mcg PO DAILY 06/24/18 06/24/18 History [place]-3 Fatty Acids/Fish Oil [Fish 1 cap PO DAILY 06/24/18 06/24/18 History Oil 1,000 mg Softgel] Potassium Chloride [Klor-Con 10] 10 meq PO DAILY 06/24/18 06/24/18 History Vitamin E 1,000 unit PO DAILY 06/24/18 06/24/18 History Allergies Allergy/AdvReac Type Severity Reaction Status Date / Time acetaminophen [From Talacen] Allergy Unknown Verified 06/24/18 09:42 amoxicillin Allergy Unknown Verified 06/24/18 09:42 amoxicillin trihydrate Allergy Unknown Verified 06/24/18 09:42 [From Augmentin] carisoprodol [From Soma] Allergy Unknown Verified 06/24/18 09:42 ciprofloxacin [From Cipro] Allergy Unknown Verified 06/24/18 09:42 ciprofloxacin HCl Allergy Unknown Verified 06/24/18 09:42 [From Cipro] clindamycin HCl Allergy Unknown Verified 06/24/18 09:42 [From Cleocin] clindamycin palmitate HCl Allergy Unknown Verified 06/24/18 09:42 [From Cleocin] clindamycin phosphate Allergy Unknown Verified 06/24/18 09:42 [From Cleocin] cyclobenzaprine HCl Allergy Unknown Verified 06/24/18 09:42 [From Flexeril] fentanyl Allergy Unknown Verified 06/24/18 09:42 hydrocodone bitartrate Allergy Unknown Verified 06/24/18 09:42 [From Vicodin] pentazocine HCl Allergy Unknown Verified 06/24/18 09:42 [From Talacen] pentazocine lactate Allergy Unknown Verified 06/24/18 09:42 [From Talwin] potassium clavulanate Allergy Unknown Verified 06/24/18 09:42 [From Augmentin] Sulfa (Sulfonamide Allergy Unknown Verified 06/24/18 09:42 Antibiotics) sulfacetamide sodium Allergy Unknown Verified 06/24/18 09:42 [From Clarifoam EF] sulfamethoxazole Allergy Unknown Verified 06/24/18 09:42 [From Bactrim] sulfur [From Clarifoam EF] Allergy Unknown Verified 06/24/18 09:42 tramadol HCl [From Ultram] Allergy Unknown Verified 06/24/18 09:42 trimethoprim [From Bactrim] Allergy Unknown Verified 06/24/18 09:42 hexadrol Allergy Unknown Uncoded 04/29/16 09:30 Physical Exam Vitals: Vital Signs Temp Pulse Pulse Resp BP BP Pulse Ox 06/25/18 07:10 97.8 F 69 18 119/74 96 06/25/18 03:58 18 06/25/18 03:10 98 F 76 18 132/72 96 06/24/18 23:37 18 06/24/18 23:00 98.2 F 70 18 108/70 97 06/24/18 20:00 18 06/24/18 18:05 98.0 F 65 18 152/82 96 06/24/18 17:00 64 18 126/69 06/24/18 16:00 64 18 147/68 97 06/24/18 15:00 58 L 19 124/69 96 06/24/18 14:00 60 18 130/68 97 06/24/18 13:29 97.9 F 58 L 18 126/68 98 Intake and Output 06/24/18 06/25/18 06/25/18 22:59 06:59 14:59 Other: # Voids 1 2 Weight 88.1 kg Results 06/25/18 06:53 06/25/18 06:53 Cardiac Enzymes 06/24/18 06/24/18 06/24/18 Range/Units 09:41 09:41 15:04 AST 126 H (14-36) U/L CK-MB (CK-2) 3.0 H 2.8 H (0.0-2.4) ng/mL Troponin I <0.012 <0.012 (0.000-0.034) ng/mL 06/24/18 06/25/18 Range/Units 22:05 06:53 AST 114 H (14-36) U/L CK-MB (CK-2) 2.5 H (0.0-2.4) ng/mL Troponin I <0.012 (0.000-0.034) ng/mL Coagulation 06/24/18 Range/Units 09:41 PT 10.3 (9.0-12.0) sec APTT 24.1 (22.0-30.0) sec CBC 06/24/18 06/25/18 Range/Units 09:41 06:53 WBC 10.3 9.9 (3.8-10.6) k/uL RBC 4.65 4.33 (3.80-5.40) m/uL Hgb 15.3 14.0 (11.4-16.0) gm/dL Hct 44.7 42.0 (34.0-46.0) % Plt Count 226 195 (150-450) k/uL Comprehensive Metabolic Panel 06/24/18 06/25/18 Range/Units 09:41 06:53 Sodium 138 140 (137-145) mmol/L Potassium 5.1 5.8 H (3.5-5.1) mmol/L Chloride 104 104 (98-107) mmol/L Carbon Dioxide 23 29 (22-30) mmol/L BUN 27 H 32 H (7-17) mg/dL Creatinine 0.63 0.79 (0.52-1.04) mg/dL Glucose 205 H 170 H (74-99) mg/dL Calcium 10.2 9.9 (8.4-10.2) mg/dL AST 126 H 114 H (14-36) U/L ALT 112 H 109 H (9-52) U/L Alkaline Phosphatase 100 94 (38-126) U/L Total Protein 7.7 6.7 (6.3-8.2) g/dL Albumin 4.3 3.7 (3.5-5.0) g/dL Current Medications Generic Name Dose Route Start Last Admin Trade Name Freq PRN Reason Stop Dose Admin Alprazolam 0.5 mg 06/24/18 14:56 06/24/18 21:49 Xanax PO 0.5 mg BID PRN Administration Anxiety Amlodipine Besylate 2.5 mg 06/25/18 09:00 Norvasc PO DAILY [facility] Ascorbic Acid 1,000 mg 06/25/18 09:00 Vitamin C PO DAILY [facility] Aspirin 325 mg 06/25/18 09:00 Aspirin PO DAILY [facility] Atenolol 50 mg 06/25/18 09:00 Tenormin PO DAILY [facility] Cyanocobalamin 5,000 mcg 06/25/18 09:00 Vitamin B-12 PO DAILY [facility] Dorzolamide/Timolol 1 drops 06/24/18 21:00 06/24/18 21:32 Cosopt BOTH EYES Not Given BID [facility] Ergocalciferol 50,000 unit 06/24/18 18:00 06/24/18 21:32 Vitamin D2 PO 50,000 unit Q7D [facility] Administration Furosemide 20 mg 06/25/18 09:00 Lasix PO DAILY [facility] Heparin Sodium (Porcine) 5,000 unit 06/24/18 21:00 06/24/18 21:32 Heparin SQ 5,000 unit Q12HR [facility] Administration Sodium Chloride 1,000 mls @ 75 mls/hr 06/25/18 08:45 Saline 0.9% IV .[id number] [facility] Latanoprost 1 drops 06/24/18 21:00 06/24/18 21:32 Xalatan 0.005% BOTH EYES 1 drops HS [facility] Administration Levothyroxine Sodium 50 mcg 06/25/18 06:30 06/25/18 04:02 Synthroid PO Not Given 0630 [facility] Lisinopril 40 mg 06/25/18 09:00 Zestril PO DAILY [facility] Multivitamins 1 each 06/25/18 12:00 Theragran PO DAILY@1200 [facility] Naloxone HCl 0.2 mg 06/24/18 11:24 Narcan IV Q2M PRN Opioid Reversal Pantoprazole Sodium 40 mg 06/25/18 09:00 Protonix IV DAILY [facility] Vitamin E 800 unit 06/25/18 09:00 Vitamin E PO DAILY [facility] Intake and Output 06/24/18 06/25/18 06/25/18 22:59 06:59 14:59 Other: # Voids 1 2 Weight 88.1 kg 06/25/18 06:53 06/25/18 06:53
--- NOTE | 2018-06-25 10:14 | CT ---
EXAMINATION TYPE: CT chest abdomen w con DATE OF EXAM: 06/25/2018 COMPARISON: April 29, 2016 HISTORY: epigastric pain, chest pain CT DLP: 828.1 mGycm CONTRAST: CT scan of the chest, abdomen is performed with Oral Contrast and with IV Contrast, patient injected with 100 mL of Isovue 300. CT Chest: LUNGS: The lungs are clear and free of infiltrate. The linear basilar compressive atelectasis identif ied. No pulmonary nodule or mass is detected. No pleural effusion or CT evidence of interstitial celso g disease. MEDIASTINUM: Thoracic aorta is of normal caliber. The heart is not enlarged. No evidence for media stinal mass or adenopathy. HILAR STRUCTURES: No evidence for mass. No hilar adenopathy is appreciated. OTHER: No significant abnormality. CONTRAST CT ABDOMEN FINDINGS: LIVER/GB: The liver is enlarged. There is evidence of diffuse fatty hepatic infiltration. No calcifi ed gallstones. No space occupying hepatic lesion. Biliary tree is of normal caliber. PANCREAS: No inflammation. No distinct mass. SPLEEN: No splenic enlargement. No lesion seen. ADRENALS: No nodule. No thickening. KIDNEYS/BLADDER: No hydronephrosis. No nephrolithiasis. No distinct renal mass. BOWEL: Normal appendix. Normal bowel caliber. No inflammation. LYMPH NODES: No greater than 1cm abdominal or pelvic lymph nodes are appreciated. AORTA: No significant abnormality. OSSEOUS STRUCTURES: Postoperative changes lumbar spine. OTHER: No significant additional abnormality is seen. IMPRESSION: 1. No acute process seen to account for the patient's symptoms. 2. Compatible megaly with underlying fatty hepatic infiltration. 3. Basilar compressive atelectasis.
--- NOTE | 2018-06-25 10:31 | ECHOF ---
Referral Reason:cp MEASUREMENTS -------- HEIGHT: 165.1 cm WEIGHT: 88.0 kg BP: 119/74 RVIDd: 2.2 cm (< 3.3) IVSd: 0.9 cm (0.6 - 1.1) LVIDd: 4.3 cm (3.9 - 5.3) LVPWd: 0.9 cm (0.6 - 1.1) IVSs: 1.3 cm LVIDs: 3.1 cm LVPWs: 1.3 cm LAESV Index (A-L): 15.78 ml/m Ao Diam: 2.9 cm (2.0 - 3.7) AV Cusp: 1.5 cm (1.5 - 2.6) LA Diam: 2.7 cm (2.7 - 3.8) EPSS: 1.2 cm MV E Jaron: 0.81 m/s MV DecT: 290 ms MV A Jaron: 1.00 m/s MV E/A Ratio: 0.81 RAP: 5.00 mmHg RVSP: 27.32 mmHg MV EF SLOPE: 56.45 mm/s (70 - 150) MV EXCURSION: 1.70 cm (> 18.000) FINDINGS -------- Sinus rhythm. This was a technically adequate study. The left ventricular size is normal. Left ventricular wall thickness is normal. Overall left vent ricular systolic function is low-normal with, an EF between 50 - 55 %. The right ventricle is normal in size and function. Normal LA size by volume 22+/-6 ml/m2. The right atrium is normal in size. Aortic valve is trileaflet and is mildly thickened. Trace to mild aortic regurgitation. There is no evidence of aortic stenosis. The mitral valve leaflets are mildly thickened. There is trace to mild mitral regurgitation. Trace tricuspid regurgitation present. Right ventricular systolic pressure is normal at < 35 mmHg. There is no evidence of pulmonary hypertension. Trace/mild (physiologic) pulmonic regurgitation. The aortic root size is normal. IVC Not well visulized. There is no pericardial effusion. CONCLUSIONS -------- 1. Sinus rhythm. 2. This was a technically adequate study. 3. The left ventricular size is normal. 4. Left ventricular wall thickness is normal. 5. Overall left ventricular systolic function is low-normal with, an EF between 50 - 55 %. 6. Normal LA size by volume 22+/-6 ml/m2. 7. Aortic valve is trileaflet and is mildly thickened. 8. Trace to mild aortic regurgitation. 9. The mitral valve leaflets are mildly thickened. 10. There is trace to mild mitral regurgitation. 11. Trace tricuspid regurgitation present. 12. Right ventricular systolic pressure is normal at < 35 mmHg. 13. There is no evidence of pulmonary hypertension. 14. Trace/mild (physiologic) pulmonic regurgitation. 15. The aortic root size is normal. 16. IVC Not well visulized. 17. There is no pericardial effusion. TALENT MANAGER: Anish Gomes RDCS
[2018-06-25 10:45] LABS: Cholesterol 175 mg/dL (<200); HDL Cholesterol 37 mg/dL (40-60); LDL Cholesterol,Calculated 105 mg/dL (0-99); Triglycerides 163 mg/dL (<150)
[2018-06-25] MEDS ORDERED: SODIUM POLYSTYRENE SULFONATE 15 GM/60 ML BOTTLE PO STA (11:01)
[2018-06-25] MEDS: DORZOLAMIDE-TIMOLOL 2.23%/0.68 10ML BTL BOTH EYES SCH ×2 (11:34→20:30)
[2018-06-25] MEDS: amLODIPine 2.5 MG TAB PO SCH (11:35)
[2018-06-25] MEDS: ASCORBIC ACID 500 MG TAB PO SCH (11:36)
[2018-06-25] MEDS: HEPARIN SODIUM,PORCINE 5,000 UNIT/ML 1 ML VIAL SQ SCH ×2 (11:36→20:30)
[2018-06-25] MEDS: ASPIRIN 325 MG TAB PO SCH (11:36)
[2018-06-25] MEDS: MULTIVITAMINS, THERA 1 EACH TAB PO SCH (11:36)
[2018-06-25] MEDS: VITAMIN E (DL,TOCOPHERYL ACET) 400 UNIT CAP PO SCH (11:36)
[2018-06-25] MEDS: CYANOCOBALAMIN 500 MCG TAB PO SCH (11:37)
[2018-06-25] MEDS: FUROSEMIDE 20 MG TAB PO SCH (11:47)
[2018-06-25] MEDS: ATENOLOL 50 MG TAB PO SCH (11:48)
[2018-06-25] MEDS: SODIUM CHLORIDE 0.9% 1,000 ML IV SCH ×2 (11:54→22:12)
--- NOTE | 2018-06-25 12:44 | P.PN ---
Subjective Progress Note Date: 06/25/18 This is a 83-year-old female with a known past medical history of TIA, hyperlipidemia, hypertension, hypothyroidism, bilateral glaucoma, benign brain tumor behind the left ear, gallstone pancreatitis with cholecystectomy several years ago. Patient also had a left carotid and 2 lower back surgeries. Denies any alcohol or tobacco use. Patient reports around 9:30 last night she started to have chest pains in the sternal area of her chest. It radiated to the back and around her bra line. Patient reports that she did not sleep well during the night because of the pain. She went to see Dr. Barton in the office early this morning and was referred to the ER. In first troponin is negative. EKG normal sinus rhythm. Chest x-ray showing left basilar atelectasis. She was found to have elevated AST of 126 and ALT 112. She had liver ultrasound completed on 06/22/2018 outpatient due to elevated liver enzymes and report did show hepatic steatosis with a solitary 1 cm cystic hepatic lobe lesion which was likely benign but they recommend recheck in 6 months. Her lipase is normal. On exam she does have epigastric tenderness with palpation. Both GI service and cardiology have been consulted. Patient denies any fever, chills, sweats, nausea or vomiting. Denies any bowel movement changes or urinary symptoms. She does report some increase in shortness of breath with activity. Patient reports her last EGD and colonoscopy about a year and a half ago. She reports the EGD was normal. On colonoscopy she reported a dilated vein in the colon that had bled. 06/25/2018 patient still reporting the chest and epigastric area discomfort. It is slightly lessened since she's been to the hospital. Denies any nausea or vomiting. Denies any shortness of breath. Denying any bowel movement changes or urinary symptoms. Troponins are negative 3 sets ALT has decreased from 112- 109 AST decreased from 126-114 potassium is 5.8 today. She has been seen by cardiology they've ordered an echo which showed an EF of 50-55% computed tomography scan of the chest and abdomen had shown atelectasis and fatty hepatic infiltration of the liver. GI consult pending Objective - Vital Signs Vital signs: Vital Signs Temp 97.7 F 06/25/18 11:44 Pulse 72 06/25/18 11:44 Resp 18 06/25/18 11:44 BP 155/74 06/25/18 11:44 Pulse Ox 96 06/25/18 11:44 Intake & Output 06/24/18 06/25/18 06/25/18 18:59 06:59 18:59 Weight 88.1 kg Other: # Voids 2 - Exam Head normocephalic Neck supple Lungs clear to auscultation bilaterally no wheezing or crackles Heart regular rate and rhythm S1-S2, no rub or gallop Abdomen is soft epigastric tenderness nondistended positive bowel sounds no hepatosplenomegaly Extremities no edema Neuro alert and orientated to 3 - Labs CBC & Chem 7: 06/25/18 06:53 06/25/18 06:53 Labs: Abnormal Lab Results - Last 24 Hours (Table) 06/24/18 06/24/18 06/25/18 Range/Units 15:04 22:05 06:53 Potassium 5.8 H (3.5-5.1) mmol/L BUN 32 H (7-17) mg/dL Glucose 170 H (74-99) mg/dL AST 114 H (14-36) U/L ALT 109 H (9-52) U/L CK-MB (CK-2) 2.8 H 2.5 H (0.0-2.4) ng/mL Triglycerides (<150) mg/dL LDL Cholesterol, Calc (0-99) mg/dL HDL Cholesterol (40-60) mg/dL 06/25/18 Range/Units 06:53 Potassium (3.5-5.1) mmol/L BUN (7-17) mg/dL Glucose (74-99) mg/dL AST (14-36) U/L ALT (9-52) U/L CK-MB (CK-2) (0.0-2.4) ng/mL Triglycerides 163 H (<150) mg/dL LDL Cholesterol, Calc 105 H (0-99) mg/dL HDL Cholesterol 37 L (40-60) mg/dL Assessment and Plan Assessment: 1. Chest pain: Troponin negative X3 . EKG normal sinus rhythm. patient evaluated by cardiology 2. Elevated LFTs with epigastric abdominal pain. Lipase is normal. Liver ultrasound from 06/22/2018 shows hepatic steatosis solitary 1 cm cystic hepatic lobe lesion which is likely benign. Recommend follow-up in 6 months. Patient denies any alcohol use. Discontinuing the Zetia. LFTs are trending down. CT chest/Abdomen underlying fatty hepatic infiltration. Awaiting GI evaluation 3. History of gallstone pancreatitis with cholecystectomy several years ago 4. History of TIA 5. History of a left carotid endarterectomy 6. Hypertension continue Norvasc, atenolol and lisinopril 7. Hypothyroidism continue Synthroid 8. Bilateral glaucoma 9. Hyperkalemia: K5.8. give kayexelate 30 grams x1. Stop lisinopril GI and DVT prophylaxis Protonix and subcu heparin
[2018-06-25] MEDS ORDERED: methylPREDNISolone SOD SUCCI 125 MG/2 ML VIAL IV STA (15:55)
[2018-06-25 19:39] VITALS: RESP 16
[2018-06-25] MEDS: PANTOPRAZOLE 40 MG/10 ML VIAL IV SCH (20:29)
[2018-06-25] MEDS: LATANOPROST 0.005% OPHTH DROPS 2.5 ML BTL BOTH EYES SCH (20:30)
[2018-06-25] MEDS: ALPRAZolam 0.5 MG TAB PO PRN (22:26)
--- NOTE | 2018-06-26 00:14 | P.CONS ---
History of Present Illness - Reason for Consult Consult date: 06/25/18 Abdominal pain Requesting physician: Aurelio Barton - Chief Complaint Chest and abdominal pain - History of Present Illness Patient is a pleasant 83-year-old female with a known medical history significant for TIA, hyperlipidemia, hypertension, hypothyroidism, bilateral glaucoma, prior gallstone pancreatitis status post cholecystectomy and GERD who presents with complaints of chest and abdominal pain. The patient reports sternal chest pain radiating to her back and around her bra line prior to presentation. The patient reports pain made it difficult for her to sleep. Per the patient the pain was constant and in her chest as described as well as her upper abdomen/epigastric region. The pain was worse with palpation. The patient had some associated nausea but no vomiting. She denies any hematemesis , hematochezia or melena. She reports her last bowel movement was yesterday and normal. She does take Mobic as needed for arthritis but reports that this is only one to 2 times per month and daily aspirin. She is also on daily omeprazole therapy at home. The patient recently had an ultrasound which was suggestive of a benign liver cyst with steatosis also noted. The patient had an elevation in her liver enzymes in a primarily hepatocellular pattern with a total bilirubin 0.6, alkaline phosphatase 94, AST 114 and ALTs 109. Cardiac workup is underway. Patient also had a CT abdomen which was normal except for hepatomegaly and steatosis with no CBD dilation noted. Her last EGD and colonoscopy were approximately a year and a half ago in [place] with a normal upper endoscopy and a bleeding vessel in the colon per the patient's report. Review of Systems REVIEW OF SYSTEMS: CONSTITUTIONAL: Denies any fevers, chills, weight change or fatigue. CARDIOVASCULAR: Denies any palpitations high or low blood pressures but did have substernal chest pain radiating to her back through her bra line RESPIRATORY: Denies any shortness of breath, hemoptysis or cough. GENITOURINARY: No dysuria or hematuria. MUSCULOSKELETAL: No weakness reported. SKIN: Denies any new rashes or lesions, jaundice or pallor. PSYCHIATRIC: Denies any depression or anxiety. NEUROLOGY: Denies headache, denies any new focal deficits. EARS/NOSE/THROAT: No recent hearing change, congestion, nasal discharge or sore throat. EYES: No pain in eyes, discharge or change in vision. GASTROINTESTINAL: As per HPI. Past Medical History Past Medical History: CVA/TIA, Eye Disorder, GERD/Reflux, Hyperlipidemia, Hypertension, Pneumonia, Thyroid Disorder, Vascular Disorder Additional Past Medical History / Comment(s): Recent elevated LFT/had recent ultrasound, 12/2014 TIA, bilateral glaucoma and cataracts, benign brain tumor behind L ear, pancreatitis prior to cholecystectomy, hypothyroid, diverticular dx. History of Any Multi-Drug Resistant Organisms: None Reported Past Surgical History: Back Surgery, Cholecystectomy, Orthopedic Surgery Additional Past Surgical History / Comment(s): L caratid endartectomy, low back surgery x3, R carpal tunnel release, R rotator cuff repair, colonoscopy-normal. Past Anesthesia/Blood Transfusion Reactions: Postoperative Nausea & Vomiting ( PONV) Smoking Status: Never smoker - Past Family History Mother Additional Family Medical History / Comment(s): Mother had alot of bronchitis. She at the age of 81 yrs. Father Family Medical History: Cancer Additional Family Medical History / Comment(s): Father of throat cancer at the age of 78 yrs. Medications and Allergies Home Medications Medication Instructions Recorded Confirmed Type ALPRAZolam [Xanax] 0.5 mg PO BID PRN 04/29/16 06/24/18 History Aspirin EC [Ecotrin] 325 mg PO DAILY 04/29/16 06/24/18 History Atenolol [Tenormin] 50 mg PO DAILY 04/29/16 06/24/18 History Enalapril [Vasotec] 20 mg PO DAILY 04/29/16 06/24/18 History Ezetimibe [Zetia] 10 mg PO DAILY 04/29/16 06/24/18 History Latanoprost Ophth [Xalatan 0.005%] 1 drops BOTH EYES HS 04/29/16 06/24/18 History Multivit-Min/Iron/Folic/Lutein 1 tab PO DAILY 04/29/16 06/24/18 History [Centrum Silver Women Tablet] Pantoprazole Sodium [Protonix] 40 mg PO DAILY 04/26/17 06/24/18 History amLODIPine [Norvasc] 2.5 mg PO DAILY 04/26/17 06/24/18 History Ascorbic Acid [Vitamin C] 1,000 mg PO DAILY 06/24/18 06/24/18 History Cyanocobalamin (Vitamin B-12) 5,000 mcg PO DAILY 06/24/18 06/24/18 History [Vitamin B-12] Dorzolamide-Timol 2.23%/0.68% 1 drop BOTH EYES BID 06/24/18 06/24/18 History [Cosopt] Ergocalciferol [Vitamin D2] 50,000 unit PO Q7D 06/24/18 06/24/18 History Furosemide [Lasix] 20 mg PO DAILY 06/24/18 06/24/18 History Levothyroxine Sodium [Synthroid] 50 mcg PO DAILY 06/24/18 06/24/18 History [place]-3 Fatty Acids/Fish Oil [Fish 1 cap PO DAILY 06/24/18 06/24/18 History Oil 1,000 mg Softgel] Potassium Chloride [Klor-Con 10] 10 meq PO DAILY 06/24/18 06/24/18 History Vitamin E 1,000 unit PO DAILY 06/24/18 06/24/18 History Allergies Allergy/AdvReac Type Severity Reaction Status Date / Time acetaminophen [From Talacen] Allergy Unknown Verified 06/24/18 09:42 amoxicillin Allergy Unknown Verified 06/24/18 09:42 amoxicillin trihydrate Allergy Unknown Verified 06/24/18 09:42 [From Augmentin] carisoprodol [From Soma] Allergy Unknown Verified 06/24/18 09:42 ciprofloxacin [From Cipro] Allergy Unknown Verified 06/24/18 09:42 ciprofloxacin HCl Allergy Unknown Verified 06/24/18 09:42 [From Cipro] clindamycin HCl Allergy Unknown Verified 06/24/18 09:42 [From Cleocin] clindamycin palmitate HCl Allergy Unknown Verified 06/24/18 09:42 [From Cleocin] clindamycin phosphate Allergy Unknown Verified 06/24/18 09:42 [From Cleocin] cyclobenzaprine HCl Allergy Unknown Verified 06/24/18 09:42 [From Flexeril] fentanyl Allergy Unknown Verified 06/24/18 09:42 hydrocodone bitartrate Allergy Unknown Verified 06/24/18 09:42 [From Vicodin] pentazocine HCl Allergy Unknown Verified 06/24/18 09:42 [From Talacen] pentazocine lactate Allergy Unknown Verified 06/24/18 09:42 [From Talwin] potassium clavulanate Allergy Unknown Verified 06/24/18 09:42 [From Augmentin] Sulfa (Sulfonamide Allergy Unknown Verified 06/24/18 09:42 Antibiotics) sulfacetamide sodium Allergy Unknown Verified 06/24/18 09:42 [From Clarifoam EF] sulfamethoxazole Allergy Unknown Verified 06/24/18 09:42 [From Bactrim] sulfur [From Clarifoam EF] Allergy Unknown Verified 06/24/18 09:42 tramadol HCl [From Ultram] Allergy Unknown Verified 06/24/18 09:42 trimethoprim [From Bactrim] Allergy Unknown Verified 06/24/18 09:42 hexadrol Allergy Unknown Uncoded 04/29/16 09:30 Physical Exam Vitals: Vital Signs Temp Pulse Resp BP Pulse Ox 06/25/18 20:00 16 06/25/18 19:38 98.0 F 75 16 150/71 90 L 06/25/18 15:54 97.9 F 67 18 128/76 95 06/25/18 11:44 97.7 F 72 18 155/74 96 06/25/18 07:10 97.8 F 69 18 119/74 96 06/25/18 03:58 18 06/25/18 03:10 98 F 76 18 132/72 96 06/24/18 23:37 18 Intake and Output 06/25/18 06/25/18 06/26/18 14:59 22:59 06:59 Intake Total 360 240 Balance 360 240 Intake: Oral 360 240 On physical examination, patient appears comfortable in no apparent distress. HEAD: Normocephalic, atraumatic. EYES: No scleral icterus. No conjunctival injection. MOUTH: No lesions, tongue midline. NECK: Trachea midline, no gross abnormalities. CHEST: Clear to auscultation with no wheezing or rhonchi appreciated with some tenderness to palpation in the sternum/chest. HEART: Regular rate and rhythm. ABDOMEN: Soft, obese mild tenderness to deep palpation in the epigastrium. Bowel sounds are positive. No organomegaly. No guarding or rigidity. EXTREMITIES: No pedal edema. SKIN: No rashes, no jaundice. NEUROLOGIC: Alert and oriented x3. No focal deficits. Results CBC & Chem 7: 06/25/18 06:53 06/25/18 06:53 Labs: Abnormal Lab Results - Last 24 Hours (Table) 06/25/18 06/25/18 Range/Units 06:53 06:53 Potassium 5.8 H (3.5-5.1) mmol/L BUN 32 H (7-17) mg/dL Glucose 170 H (74-99) mg/dL AST 114 H (14-36) U/L ALT 109 H (9-52) U/L Triglycerides 163 H (<150) mg/dL LDL Cholesterol, Calc 105 H (0-99) mg/dL HDL Cholesterol 37 L (40-60) mg/dL CT scan - abdomen: report reviewed (CT abdomen is significant for hepatomegaly and steatosis without any CBD dilation noted or note of the previously seen hepatic cyst) Assessment and Plan (1) Abdominal pain Narrative/Plan: Abdominal and chest pain in the region of the sternum and epigastrium of unclear etiology. Cardiologic workup by the cardiology service. CT of the abdomen failed to show any pathology such as thickening of the esophagus or stomach or any evidence of ulcer or liver or biliary pathology to explain her symptoms. She did have steatosis and hepatomegaly noted on the CT, but the liver cyst noted on prior ultrasound was not really demonstrated on CT. symptoms may be suggestive of dyspepsia, uncontrolled reflux, costochondritis or musculoskeletal etiology or other etiology. Current Visit: No Status: Acute Code(s): R10.9 - UNSPECIFIED ABDOMINAL PAIN SNOMED Code(s): 38521413 (2) Elevated liver enzymes Narrative/Plan: Mainly in a hepatocellular pattern with an elevation of AST 114 and ALT 109. Likely related to nonalcoholic fatty liver disease. Current Visit: Yes Status: Acute Code(s): R74.8 - ABNORMAL LEVELS OF OTHER SERUM ENZYMES SNOMED Code(s): 730313390 (3) Chest pain Current Visit: Yes Status: Acute Code(s): R07.9 - CHEST PAIN, UNSPECIFIED SNOMED Code(s): 04723073 Plan: Supportive care Okay for diet Would increase omeprazole to twice daily Consider musculoskeletal or costochondritis as the etiology of the patient's pain As per ultrasound report would recommend repeat study in 6 months for evaluation of liver cyst seen on imaging Patient should follow-up with gastroenterology service in the outpatient setting for full serologic workup of elevated liver enzymes, however suspect given the patient's body habitus and comorbidities that this is related to fatty liver disease No anemia, dysphagia or other alarm symptoms to prompt endoscopic evaluation at this time, would recommend trial of increase PPI and if symptoms persist we'll discuss repeat endoscopy with the patient in the outpatient setting Thank you for allowing us to participate in the care of this patient we will continue to follow
[2018-06-26] MEDS: LEVOTHYROXINE 50 MCG TAB PO SCH (05:35)
[2018-06-26 06:54] LABS: Basophils % (A) 0 %; Eosinophils % (A) 0 %; HCT 42.4 % (34.0-46.0); HGB 14.2 gm/dL (11.4-16.0); Lymphocytes # (A) 1.5 k/uL (1.0-4.8); Lymphocytes % (A) 12 %; MCH 32.3 pg (25.0-35.0); MCHC 33.6 g/dL (31.0-37.0); MCV 96.1 fL (80.0-100.0); Mean Platelet Volume 7.8; Monocytes # (A) 0.3 k/uL (0-1.0); Monocytes % (A) 2 %; Neutrophils % (A) 86 %; Platelet Count 192 k/uL (150-450); RBC 4.41 m/uL (3.80-5.40); RDW 12.3 % (11.5-15.5); WBC 12.8 k/uL (3.8-10.6)
[2018-06-26 07:35] LABS: Albumin 3.6 g/dL (3.5-5.0); Potassium 4.9 mmol/L (3.5-5.1); Total Bilirubin 0.3 mg/dL (0.2-1.3); Total Protein 6.6 g/dL (6.3-8.2)
[2018-06-26 08:07] VITALS: BP 142/75; PULSE 80; TEMP 97.5
[2018-06-26] MEDS: amLODIPine 2.5 MG TAB PO SCH (10:11)
[2018-06-26] MEDS: FUROSEMIDE 20 MG TAB PO SCH (10:11)
[2018-06-26] MEDS: HEPARIN SODIUM,PORCINE 5,000 UNIT/ML 1 ML VIAL SQ SCH (10:11)
[2018-06-26] MEDS: ASPIRIN 325 MG TAB PO SCH (10:11)
[2018-06-26] MEDS: ATENOLOL 50 MG TAB PO SCH (10:11)
[2018-06-26] MEDS: ASCORBIC ACID 500 MG TAB PO SCH (10:11)
[2018-06-26] MEDS: PANTOPRAZOLE 40 MG/10 ML VIAL IV SCH (10:12)
[2018-06-26] MEDS: CYANOCOBALAMIN 500 MCG TAB PO SCH (10:12)
[2018-06-26] MEDS: DORZOLAMIDE-TIMOLOL 2.23%/0.68 10ML BTL BOTH EYES SCH (10:24)
[2018-06-26] MEDS: VITAMIN E (DL,TOCOPHERYL ACET) 400 UNIT CAP PO SCH (10:24)
[2018-06-26] MEDS: MULTIVITAMINS, THERA 1 EACH TAB PO SCH (10:24)
[2018-06-26] MEDS: SODIUM CHLORIDE 0.9% 1,000 ML IV SCH (13:22)
--- NOTE | 2018-06-26 15:07 | P.DS ---
Providers Date of admission: 06/24/18 11:24 Expected date of discharge: 06/26/18 Attending physician: Aurelio Barton Consults: 06/24/18 11:24 Consult Physician Routine Consulting Provider: Osmin Diaz Consult Reason/Comments: Transaminitis, chest pain Do you want consulting provider notified?: Yes Consult Physician Routine Consulting Provider: Justyn Guan Consult Reason/Comments: Chest pain Do you want consulting provider notified?: Yes Primary care physician: Aurelio Barton [facility] Course: Diagnoses on discharge: 1. Chest pain: Troponin negative X3 . EKG normal sinus rhythm. patient evaluated by cardiology 2. Elevated LFTs with epigastric abdominal pain. Lipase is normal. Liver ultrasound from 06/22/2018 shows hepatic steatosis solitary 1 cm cystic hepatic lobe lesion which is likely benign. Recommend follow-up in 6 months. Patient denies any alcohol use. Discontinuing the Zetia. LFTs are trending down. CT chest/Abdomen underlying fatty hepatic infiltration. Awaiting GI evaluation 3. History of gallstone pancreatitis with cholecystectomy several years ago 4. History of TIA 5. History of a left carotid endarterectomy 6. Hypertension continue Norvasc, atenolol and lisinopril 7. Hypothyroidism continue Synthroid 8. Bilateral glaucoma 9. Hyperkalemia: K5.8. give kayexelate 30 grams x1. Stop lisinopril Hospital course: This is a 83-year-old female with a known past medical history of TIA, hyperlipidemia, hypertension, hypothyroidism, bilateral glaucoma, benign brain tumor behind the left ear, gallstone pancreatitis with cholecystectomy several years ago. Patient also had a left carotid and 2 lower back surgeries. Denies any alcohol or tobacco use. Patient reports around 9:30 last night she started to have chest pains in the sternal area of her chest. It radiated to the back and around her bra line. Patient reports that she did not sleep well during the night because of the pain. She went to see Dr. Barton in the office early this morning and was referred to the ER. In first troponin is negative. EKG normal sinus rhythm. Chest x-ray showing left basilar atelectasis. She was found to have elevated AST of 126 and ALT 112. She had liver ultrasound completed on 06/22/2018 outpatient due to elevated liver enzymes and report did show hepatic steatosis with a solitary 1 cm cystic hepatic lobe lesion which was likely benign but they recommend recheck in 6 months. Her lipase is normal. On exam she does have epigastric tenderness with palpation. Both GI service and cardiology have been consulted. Patient denies any fever, chills, sweats, nausea or vomiting. Denies any bowel movement changes or urinary symptoms. She does report some increase in shortness of breath with activity. Patient reports her last EGD and colonoscopy about a year and a half ago. She reports the EGD was normal. On colonoscopy she reported a dilated vein in the colon that had bled. 06/25/2018 patient still reporting the chest and epigastric area discomfort. It is slightly lessened since she's been to the hospital. Denies any nausea or vomiting. Denies any shortness of breath. Denying any bowel movement changes or urinary symptoms. Troponins are negative 3 sets ALT has decreased from 112- 109 AST decreased from 126-114 potassium is 5.8 today. She has been seen by cardiology they've ordered an echo which showed an EF of 50-55% computed tomography scan of the chest and abdomen had shown atelectasis and fatty hepatic infiltration of the liver. GI consult pending On 06/26/2018 patient is alert and oriented 3, pain and tenderness in the lower sternal area improved significantly after having one dose of IV Solu- Medrol 125 mg last night patient has been walking in the hallway without any chest pain or shortness of breath there is no fever or chills no headache or dizziness no chest pain no shortness of breath no cough no nausea or vomiting no abdominal pain and no urinary symptoms liver enzymes are down with AST at 76 and ALT at 88 at this time patient will be discharged home she was given a prescription for Protonix 40 mg by mouth twice a day otherwise she will continue on her same medication as prior to admission patient had elevated potassium level during this hospitalization she was told to discontinue taking potassium and recheck in the office in one week Patient Condition at Discharge: Stable Plan - Discharge Summary Discharge Rx Participant: No New Discharge Prescriptions: No Action Aspirin EC [Ecotrin] 325 mg PO DAILY Multivit-Min/Iron/Folic/Lutein [Centrum Silver Women Tablet] 1 tab PO DAILY ALPRAZolam [Xanax] 0.5 mg PO BID PRN PRN Reason: Anxiety Enalapril [Vasotec] 20 mg PO DAILY Latanoprost Ophth [Xalatan 0.005%] 1 drops BOTH EYES HS Ezetimibe [Zetia] 10 mg PO DAILY Atenolol [Tenormin] 50 mg PO DAILY amLODIPine [Norvasc] 2.5 mg PO DAILY Pantoprazole Sodium [Protonix] 40 mg PO DAILY [place]-3 Fatty Acids/Fish Oil [Fish Oil 1,000 mg Softgel] 1 cap PO DAILY Ergocalciferol [Vitamin D2] 50,000 unit PO Q7D Cyanocobalamin (Vitamin B-12) [Vitamin B-12] 5,000 mcg PO DAILY Ascorbic Acid [Vitamin C] 1,000 mg PO DAILY Vitamin E 1,000 unit PO DAILY Dorzolamide-Timol 2.23%/0.68% [Cosopt] 1 drop BOTH EYES BID Levothyroxine Sodium [Synthroid] 50 mcg PO DAILY Potassium Chloride [Klor-Con 10] 10 meq PO DAILY Furosemide [Lasix] 20 mg PO DAILY Discharge Medication List ALPRAZolam [Xanax] 0.5 mg PO BID PRN 04/29/16 [History] Aspirin EC [Ecotrin] 325 mg PO DAILY 04/29/16 [History] Atenolol [Tenormin] 50 mg PO DAILY 04/29/16 [History] Enalapril [Vasotec] 20 mg PO DAILY 04/29/16 [History] Ezetimibe [Zetia] 10 mg PO DAILY 04/29/16 [History] Latanoprost Ophth [Xalatan 0.005%] 1 drops BOTH EYES HS 04/29/16 [History] Multivit-Min/Iron/Folic/Lutein [Centrum Silver Women Tablet] 1 tab PO DAILY [History] Pantoprazole Sodium [Protonix] 40 mg PO DAILY 04/26/17 [History] amLODIPine [Norvasc] 2.5 mg PO DAILY 04/26/17 [History] Ascorbic Acid [Vitamin C] 1,000 mg PO DAILY 06/24/18 [History] Cyanocobalamin (Vitamin B-12) [Vitamin B-12] 5,000 mcg PO DAILY 06/24/18 [ History] Dorzolamide-Timol 2.23%/0.68% [Cosopt] 1 drop BOTH EYES BID 06/24/18 [History] Ergocalciferol [Vitamin D2] 50,000 unit PO Q7D 06/24/18 [History] Furosemide [Lasix] 20 mg PO DAILY 06/24/18 [History] Levothyroxine Sodium [Synthroid] 50 mcg PO DAILY 06/24/18 [History] [place]-3 Fatty Acids/Fish Oil [Fish Oil 1,000 mg Softgel] 1 cap PO DAILY [History] Potassium Chloride [Klor-Con 10] 10 meq PO DAILY 06/24/18 [History] Vitamin E 1,000 unit PO DAILY 06/24/18 [History] Follow up Appointment(s)/Referral(s): Krunal Stearns MD [STAFF PHYSICIAN] - 2 Weeks (Please call office on Thursday, June 28 to schedule an appointment) Aurelio Barton MD [Primary Care Provider] - 1-2 days Patient Instructions/Handouts: Chest Pain (DC)
== END 2018-06-26 16:00 | disposition home or self-care (01) ==
LOC: EC 09:09 → 1SOBS 11:24
PROVIDERS: ADMIT Internal Medicine; ATTEND Internal Medicine
DX: R07.89 Other chest pain (principal); E03.9 Hypothyroidism, unspecified; E78.5 Hyperlipidemia, unspecified; E87.5 Hyperkalemia; H40.9 Unspecified glaucoma; I10 Essential (primary) hypertension; I73.9 Peripheral vascular disease, unspecified; K21.9 Gastro-esophageal reflux disease without esophagitis; K76.0 Fatty (change of) liver, not elsewhere classified; Z79.82 Long term (current) use of aspirin; Z79.899 Other long term (current) drug therapy; Z79.890 Hormone replacement therapy; Z88.1 Allergy status to other antibiotic agents; Z88.5 Allergy status to narcotic agent; Z88.0 Allergy status to penicillin; Z88.2 Allergy status to sulfonamides; Z88.8 Allergy status to other drugs, medicaments and biological substances; Z80.0 Family history of malignant neoplasm of digestive organs; Z82.5 Family history of asthma and other chronic lower respiratory diseases; Z86.011 Personal history of benign neoplasm of the brain; Z86.73 Personal history of transient ischemic attack (TIA), and cerebral infarction without residual deficits; Z90.49 Acquired absence of other specified parts of digestive tract
CPT/HCPCS: 96372 ×3; 96374; 96375; 96376 ×2; 99285; 36415; 94760; 93005; 93306; 83880; 80061; 80053 ×3; 82550; 82553; 83690; 83735; 84484; 85025 ×3; 85610; 85730; 71046; 71260; 74160; G0378 ×3; J1644 ×3; J2930; C9113 ×2; Q9967

== ENCOUNTER → 2018-09-17 | Outpatient (CLI) | payer MEDICARE, BC ==
--- NOTE | 2018-09-17 16:26 | CT ---
EXAMINATION TYPE: CT pelvis w con DATE OF EXAM: 09/17/2018 COMPARISON: CT abdomen 06/25/2018 HISTORY: Lt side groin pain, pain across lower buttocks CT DLP: 948.4 mGycm Automated exposure control for dose reduction was used. TECHNIQUE: Helical acquisition of images from the lung bases through the pelvis have been completed. CONTRAST: Performed with Oral Contrast and with IV Contrast, patient injected with 100 mL of Isovue 300. FINDINGS: No abnormal fluid collection. Uterus and adnexal structures within normal limits for patient's age. N o pelvic adenopathy. Urinary bladder is normal. Extensive diverticular changes associated with the si gmoid colon. Mesenteric calcification is noted incidentally. OSSEOUS STRUCTURES: Postop changes are noted status post posterior fusion at L4-L5, there is loss of disc height at the intervertebral levels. Facet arthropathy changes present, suspect there is spinal stenosis present at L3-4 which is incompletely evaluated, suspect there is broad-based posterior dis c bulge. Artifact is noted due to the fixation hardware. Osteoarthritic change noted in the left hip, there is marginal spurring present at the femoral head. IMPRESSION: DIVERTICULOSIS. POSTOP CHANGES. POSSIBLE SPINAL STENOSIS.
== END | disposition home or self-care (01) ==
LOC: RADCTMAIN 13:26
PROVIDERS: ATTEND Internal Medicine
DX: K57.90 Diverticulosis of intestine, part unspecified, without perforation or abscess without bleeding (principal); Z98.1 Arthrodesis status
CPT/HCPCS: 82565; 84520; 72193; 36415; Q9967

== ENCOUNTER → 2018-09-27 | Outpatient (CLI) | payer MEDICARE, BC ==
--- NOTE | 2018-09-28 16:37 | MM ---
Reason for exam: follow-up at short interval from prior study. Last mammogram was performed 6 months ago. History: Patient is postmenopausal. Ultrasound-guided cyst aspiration of the left breast, April 16, 1999. Benign excisional biopsy of the left breast. Took estrogen for 8 years. Took progesterone for 8 years. Physical Findings: Nurse did not find any significant physical abnormalities on exam. MG 3D Diag Mammo W/Cad LT CC and MLO view(s) were taken of the left breast. Prior study comparison: March 31, 2018, left breast MG 3d work up w/cad LT. March 18, 2018, bilateral MG 3d screening mammo w/cad. There are scattered fibroglandular densities. At 11 o'clock is a bilobed circumscribed lesion redemonstrated with rounded components measuring 5 mm and 4 mm vs 3 mm and 4 mm previously. A 6 month follow up is recommended as previous ultrasound did not show a typical cystic appearance. These results were verbally communicated with the patient and result sheet given to the patient on 09/27/18. ASSESSMENT: Probably benign, BI-RAD 3 RECOMMENDATION: Follow-up diagnostic mammogram of both breasts in 6 months. Back on schedule
== END | disposition home or self-care (01) ==
LOC: RADMAMWWP 08:28
PROVIDERS: ATTEND Internal Medicine
DX: R92.8 Other abnormal and inconclusive findings on diagnostic imaging of breast (principal)
CPT/HCPCS: 77065; G0279; 77061

== ENCOUNTER → 2018-09-30 | Outpatient (CLI) | payer MEDICARE, BC ==
--- NOTE | 2018-09-30 13:11 | MR ---
EXAMINATION TYPE: MR lumbar spine wo/w con DATE OF EXAM: 09/30/2018 COMPARISON: CT pelvis September 17, 2018. Older CT abdomen June 25, 2018. HISTORY: Spinal stenosis, lumbar region / Abn CT Pelvis all per order. Low back pain into bilateral b uttocks and left side per patient with history of surgery twice last in 2000. TECHNIQUE: Multiplanar, multisequence images of the lumbar spine is performed without and with IV contrast, util izing 8.5 mL intravenous Gadavist FINDINGS: Sagittal images of the lumbar spine show vertebral body heights and alignment to remain sat isfactory. There is artifact from posterior fusion hardware and disc material at L4-L5 level redemons trated. Multilevel disc desiccation is seen. Mild to moderate disc space narrowing with posterior di sc herniation L3-L4 level is confirmed on sagittal images. The conus medullaris is slightly low lying ending at mid L2 level without abnormal signal or clumping of lumbosacral nerve roots. No suspiciou s enhancement is seen. The bone marrow signal intensity is within normal limits. There is advanced di sc space narrowing L5-S1 level. Axial images show at T11-T12, T12-L1, and L1-L2 levels all to appear within normal limits. Axial images at the L2-L3 level show mild to moderate broad disc bulge with left paracentral disc pro trusion component effacing anterior thecal sac and mild facet degenerative changes bilaterally. There is mild right-sided anterior inferior neural foraminal narrowing. Left-sided neural foramen is paten t. Axial images at L3-L4 level show artifact from surgical hardware. There is moderate to advanced facet arthropathy ligamentum flavum hypertrophy effacing posterior lateral thecal sac. There is severe bro ad disc bulge effacing anterior thecal sac causing spinal canal stenosis seen on axial image 13. Ther e is mild to moderate bilateral anterior inferior neural foraminal narrowing. Findings are less well seen on CT due to streak artifact from metallic hardware. Axial images at this L4-L5 level show artifact from posterior fusion hardware. Spinal canal is preser reva. Bilateral neural foramina are patent. Axial images at L5-S1 level show mild facet arthropathy. Spinal canal is preserved. Bilateral neural foramina are felt patent. No suspicious enhancement is seen. No suspicious incidental retroperitoneal findings are noted. IMPRESSION: Postsurgical change L4-L5 level redemonstrated. Confirmation of spinal canal stenosis L3 -L4 level as suspected on recent pelvic CT due to disc herniation and facet arthropathy.
== END | disposition home or self-care (01) ==
LOC: RADMRIMAIN 07:20
PROVIDERS: ATTEND Internal Medicine
DX: M48.061 Spinal stenosis, lumbar region without neurogenic claudication (principal); R93.5 Abnormal findings on diagnostic imaging of other abdominal regions, including retroperitoneum; Z98.890 Other specified postprocedural states
CPT/HCPCS: 72158; A9585

== ENCOUNTER → 2018-11-04 | Outpatient (CLI) | payer MEDICARE, BC ==
[2018-11-04 11:31] LABS: Blood Urea Nitrogen 23 mg/dL (7-17)
--- NOTE | 2018-11-05 11:00 | MR ---
EXAMINATION TYPE: MR brain wo/w con DATE OF EXAM: 11/04/2018 COMPARISON: Prior MRI brain March 14, 2017 and older MRIs. HISTORY: Personal history of other benign neoplasm, F/U TECHNIQUE: Multiplanar, multisequence images of the brain and brainstem is performed without and with IV contras t, utilizing 8.5 mL intravenous Gadavist . FINDINGS: Diffusion weighted images demonstrate no evidence of a recent infarct or other diffusion ab normality. There is no worrisome extra-axial fluid collection. There is ventricular and sulcal promi nence consistent with diffuse cerebral atrophy. There are scattered foci of T2 hyperintensity seen th roughout the white matter bilaterally. Lesions are nonspecific in appearance and distribution but mos t likely on basis of product of chronic small vessel ischemic change in patient of this age. Midline structures redemonstrate normal morphology. The craniocervical junction appears within kayy l limits. There is new moderate mucosal thickening and patchy fluid in the left sphenoid sinus. Remai nder paranasal sinuses are clear. Globes are intact. There is redemonstration of left sphenoid wing a nd cavernous sinus homogeneous enhancing mass causing diffuse narrowing of the supraclinoid segment l eft internal carotid artery seen best axial image 12 measuring roughly 3.0 x 1.5 cm with a posterior medial 9 mm round homogeneous enhancing component redemonstrated. No new enhancing lesions are seen. IMPRESSION: 1. 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 2. Background mild to moderate diffuse cerebral atrophy and chronic small vessel ischemic change rede monstrated.
== END ==
LOC: RADMRIMAIN 10:53
PROVIDERS: ATTEND Neurological Surgery
DX: Z08 Encounter for follow-up examination after completed treatment for malignant neoplasm (principal); Z86.018 Personal history of other benign neoplasm; G31.9 Degenerative disease of nervous system, unspecified; I67.82 Cerebral ischemia
CPT/HCPCS: 82565; 84520; 70553; 36415; A9585

== ENCOUNTER → 2020-05-07 | Outpatient (CLI) | payer MEDICARE, BC ==
--- NOTE | 2020-05-07 08:47 | US ---
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 abn labs, no symptoms, cholecystectomy EXAM MEASUREMENTS: Liver Length: 16.6 cm Gallbladder Wall: Surgically absent CBD: 0.4 cm Right Kidney: 11.0 x 4.6 x 4.6 cm Pancreas: wnl Liver: difficult to penetrate Gallbladder: Surgically absent Evidence for sonographic Barger's sign: no CBD: wnl Right Kidney: wnl IMPRESSION: 1. Mild hepatomegaly.
--- NOTE | 2020-05-07 17:11 | BD ---
EXAMINATION TYPE: Axial Bone Density DATE OF EXAM: 05/07/2020 COMPARISON: NONE CLINICAL HISTORY: Height: 65 Weight: 176.5 FRAX RISK QUESTIONS: Alcohol (3 or more units per day): no Family History (Parent hip fracture): no Glucocorticoids (More than 3mos): no (Ex: prednisone, prednisolone, methylprednisolone, dexamethasone, and hydrocortisone). History of Fracture in Adulthood: yes Secondary Osteoporosis: 1. Type 1 Diabetes: no 2. Hyperthyroidism: no 3. Menopause before 45: no 4. Malnutrition: no 5. Chronic liver disease: no Rheumatoid Arthritis: no Current Tobacco Use: no RISK FACTORS HISTORY OF: History of Wrist Fracture: right wrist When: 15 years ago Surgery to Spine/Hip(right/left)/Wrist (right/left): lumbar spine When: 2019 x2 Family History of Osteoporosis: no Active: yes Diet low in dairy products/other sources of calcium: yes Postmenopausal woman: age 55 Lost more than 2 inches in height since high school: no MEDICATIONS: protonix, atenolol, anaprolol, Lasix, aspirin, Crestor, metformin, eye drops Thyroid Medications: levothyroxine How Lon years Additional History: EXAM MEASUREMENTS: Bone mineral densitometry was performed using the SafedoX System. Bone mineral density about the R hip (g/cm2): 0.700 Bone mineral density about the L hip (g/cm2): 0.750 T Score values are as follows: -----R Neck: -2.4 -----L Neck: -2.0 -----R Total: -18 -----L Total: -2.0 Bone mineral density has: decreased -7.6 % since study of: 01.26.2015 Bone mineral density about the L Wrist (g/cm2): 0.539 T Score values are as follows: -----Dist. R+U: -2.8 -----Prox. R+U: -1.9 -----Radius total: -2.2 Bone mineral density : baseline IMPRESSION: Osteoporosis (T Score less than -2.5). There is increased fracture risk and therapy is usually indicated based on age. Re-Screen 1-2 years. NOTE: T-SCORE=SD OF THE YOUNG ADULT MEAN.
--- NOTE | 2020-05-08 10:21 | MM ---
Reason for exam: screening (asymptomatic). Last mammogram was performed 1 year and 7 months ago. History: Patient is postmenopausal. Ultrasound-guided cyst aspiration of the left breast, April 16, 1999. Benign excisional biopsy of the left breast. Took estrogen for 8 years. Took progesterone for 8 years. Physical Findings: A clinical breast exam by your physician is recommended on an annual basis and results should be correlated with mammographic findings. MG 3D Screening Mammo W/Cad Bilateral CC and MLO view(s) were taken. Prior study comparison: September 27, 2018, left breast MG 3d diag mammo w/cad LT. March 31, 2018, left breast MG 3d work up w/cad LT. The breast tissue is heterogeneously dense. This may lower the sensitivity of mammography. Finding #1: There is a 11 mm circumscribed lobulated mass in the upper slight inner quadrant, middle position of the left breast. Finding #2: There are typically benign vascular, round calcifications. New finding and increase in size since September 27, 2018 and March 31, 2018. ASSESSMENT: Incomplete: need additional imaging evaluation, BI-RAD 0 RECOMMENDATION: Ultrasound of the left breast. [facility] will attempt to contact patient to return for ultrasound.
== END | disposition home or self-care (01) ==
LOC: RADUSWWP 08:01
PROVIDERS: ATTEND Internal Medicine
DX: Z12.31 Encounter for screening mammogram for malignant neoplasm of breast (principal); M81.0 Age-related osteoporosis without current pathological fracture; R16.0 Hepatomegaly, not elsewhere classified; K76.0 Fatty (change of) liver, not elsewhere classified
CPT/HCPCS: 76705; 77063; 77067; 77080

== ENCOUNTER → 2020-05-16 | Outpatient (CLI) | payer MEDICARE, BC ==
--- NOTE | 2020-05-16 09:37 | USB ---
Reason for exam: additional evaluation requested from abnormal screening. History: Patient is postmenopausal. Ultrasound-guided cyst aspiration of the left breast, April 16, 1999. Benign excisional biopsy of the left breast. Physical Findings: Nurse did not find any significant physical abnormalities on exam. US Breast Workup LT Left complete breast ultrasound includes all four quadrants, the retroareolar region and axilla. Finding demonstrates a 9 x 7 x 10mm spiculated, mixed, vascular lesion at 11 o'clock. No axillary lymphadenopathy. Scanned the whole breast. These results were verbally communicated with the patient and result sheet given to the patient on 05/16/20. ASSESSMENT: Highly suggestive of malignancy, BI-RAD 5 RECOMMENDATION: Surgical consultation and ultrasound core biopsy of the left breast. Called office with mammographic findings and has scheduled an appointment for the patient for 06/12/[address] Kaufman. PRELIMINARY REPORT CALLED AND FAXED TO DR. KAUFMAN ON 05/16/20.
== END | disposition home or self-care (01) ==
LOC: RADUSWWP 07:03
PROVIDERS: ATTEND Internal Medicine
DX: R92.8 Other abnormal and inconclusive findings on diagnostic imaging of breast (principal)

== ENCOUNTER → 2021-03-12 | Outpatient (CLI) | payer MEDICARE, BC | END | disposition home or self-care (01) | CPT/HCPCS: 72100 ==

== ENCOUNTER 2021-04-18 09:26 | Emergency (ER) | payer MEDICARE, BC ==
[2021-04-18 09:36] VITALS: BP 149/82; PULSE 80; RESP 18; TEMP 98.5
[2021-04-18] MEDS ORDERED: KETOROLAC 15 MG/ML 1 ML VIAL IM STA (09:57)
[2021-04-18] MEDS ORDERED: ACETAMINOPHEN TAB 325 MG TAB PO STA (09:57)
--- NOTE | 2021-04-18 10:00 | ED ---
Upper Extremity HPI - General Chief Complaint: Extremity Injury, Upper Stated Complaint: Fall, wrist injury Time Seen by Provider: 04/18/21 09:46 Source: patient Mode of arrival: ambulatory Limitations: no limitations - History of Present Illness Initial Comments: 86 year-old female patient presents to the emergency department for evaluation of right wrist pain. Patient states yesterday she was going up the steps in her garage and fell backwards. States she put her left arm out behind her and injured the wrist. States she did wrap with michael wrap but the pain kept her up throughout the night. States her hand became swollen. She denies taking anything for pain. States she does take a baby aspirin. She denies hitting her head or losing consciousness. Denies any neck or back injury. Patient denies any headache, neck pain, back pain, chest pain, shortness of breath, dizziness, weakness, abdominal pain, nausea, vomiting, or difficulties with bowel movements or urination. - Related Data Home Medications Medication Instructions Recorded Confirmed ALPRAZolam [Xanax] 0.5 mg PO BID PRN 04/29/16 06/24/18 Aspirin EC [Ecotrin] 325 mg PO DAILY 04/29/16 06/24/18 Atenolol [Tenormin] 50 mg PO DAILY 04/29/16 06/24/18 Enalapril [Vasotec] 20 mg PO DAILY 04/29/16 06/24/18 Latanoprost Ophth [Xalatan 0.005%] 1 drops BOTH EYES HS 04/29/16 06/24/18 Multivit-Min/Iron/Folic/Lutein 1 tab PO DAILY 04/29/16 06/24/18 [Centrum Silver Women Tablet] amLODIPine [Norvasc] 2.5 mg PO DAILY 04/26/17 06/24/18 Ascorbic Acid [Vitamin C] 1,000 mg PO DAILY 06/24/18 06/24/18 Cyanocobalamin (Vitamin B-12) 5,000 mcg PO DAILY 06/24/18 06/24/18 [Vitamin B-12] Dorzolamide-Timol 2.23%/0.68% 1 drop BOTH EYES BID 06/24/18 06/24/18 [Cosopt] Ergocalciferol [Vitamin D2 50,000 unit PO Q7D 06/24/18 06/24/18 (DRISDOL)] Furosemide [Lasix] 20 mg PO DAILY 06/24/18 06/24/18 Levothyroxine Sodium [Synthroid] 50 mcg PO DAILY 06/24/18 06/24/18 [place]-3 Fatty Acids/Fish Oil [Fish 1 cap PO DAILY 06/24/18 06/24/18 Oil 1,000 mg Softgel] Potassium Chloride [Klor-Con 10] 10 meq PO DAILY 06/24/18 06/24/18 Vitamin E (Dl,Tocopheryl Acet) 1,000 unit PO DAILY 06/24/18 06/24/18 [Vitamin E] Previous Rx's Medication Instructions Recorded Pantoprazole Sodium [Protonix] 40 mg PO BID 30 Days #60 tablet. 06/26/18 Allergies Allergy/AdvReac Type Severity Reaction Status Date / Time acetaminophen [From Talacen] Allergy Unknown Verified 04/18/21 09:32 amoxicillin Allergy Unknown Verified 04/18/21 09:32 amoxicillin trihydrate Allergy Unknown Verified 04/18/21 09:32 [From Augmentin] carisoprodol [From Soma] Allergy Unknown Verified 04/18/21 09:32 ciprofloxacin [From Cipro] Allergy Unknown Verified 04/18/21 09:32 ciprofloxacin HCl Allergy Unknown Verified 04/18/21 09:32 [From Cipro] clindamycin HCl Allergy Unknown Verified 04/18/21 09:32 [From Cleocin] clindamycin palmitate HCl Allergy Unknown Verified 04/18/21 09:32 [From Cleocin] clindamycin phosphate Allergy Unknown Verified 04/18/21 09:32 [From Cleocin] cyclobenzaprine HCl Allergy Unknown Verified 04/18/21 09:32 [From Flexeril] fentanyl Allergy Unknown Verified 04/18/21 09:32 hydrocodone bitartrate Allergy Unknown Verified 04/18/21 09:32 [From Vicodin] pentazocine HCl Allergy Unknown Verified 04/18/21 09:32 [From Talacen] pentazocine lactate Allergy Unknown Verified 04/18/21 09:32 [From Talwin] potassium clavulanate Allergy Unknown Verified 04/18/21 09:32 [From Augmentin] Sulfa (Sulfonamide Allergy Unknown Verified 04/18/21 09:32 Antibiotics) sulfacetamide sodium Allergy Unknown Verified 04/18/21 09:32 [From Clarifoam EF] sulfamethoxazole Allergy Unknown Verified 04/18/21 09:32 [From Bactrim] sulfur [From Clarifoam EF] Allergy Unknown Verified 04/18/21 09:32 tramadol HCl [From Ultram] Allergy Unknown Verified 04/18/21 09:32 trimethoprim [From Bactrim] Allergy Unknown Verified 04/18/21 09:32 hexadrol Allergy Unknown Uncoded 04/18/21 09:32 Review of Systems ROS Statement: Those systems with pertinent positive or pertinent negative responses have been documented in the HPI. ROS Other: All systems not noted in ROS Statement are negative. Past Medical History Past Medical History: CVA/TIA, Diabetes Mellitus, Eye Disorder, GERD/Reflux, Hyperlipidemia, Hypertension, Pneumonia, Thyroid Disorder, Vascular Disorder Additional Past Medical History / Comment(s): Recent elevated LFT/had recent ultrasound, 12/2014 TIA, bilateral glaucoma and cataracts, benign brain tumor behind L ear, pancreatitis prior to cholecystectomy, hypothyroid, diverticular dx. History of Any Multi-Drug Resistant Organisms: None Reported Past Surgical History: Back Surgery, Cholecystectomy, Orthopedic Surgery Additional Past Surgical History / Comment(s): L caratid endartectomy, low back surgery x3, R carpal tunnel release, R rotator cuff repair, colonoscopy-normal. Past Anesthesia/Blood Transfusion Reactions: Postoperative Nausea & Vomiting (PONV) Past Psychological History: Anxiety, Depression Smoking Status: Never smoker Past Alcohol Use History: None Reported Past Drug Use History: None Reported - Past Family History Mother Additional Family Medical History / Comment(s): Mother had alot of bronchitis. She at the age of 81 yrs. Father Family Medical History: Cancer Additional Family Medical History / Comment(s): Father of throat cancer at the age of 78 yrs. General Exam Limitations: no limitations General appearance: alert, in no apparent distress, other (This is a well- developed, well-nourished elderly female patient in no acute distress. Vital signs upon presentation are temperature 98.5F, pulse 80, respirations 18, blood pressure 149/82, pulse ox 96% on room air.) Head exam: Present: atraumatic, normocephalic, normal inspection Eye exam: Present: normal appearance, PERRL, EOMI. Absent: scleral icterus, conjunctival injection, periorbital swelling ENT exam: Present: normal exam, normal oropharynx, mucous membranes moist Neck exam: Present: normal inspection. Absent: tenderness, meningismus, lymphadenopathy Respiratory exam: Present: normal lung sounds bilaterally. Absent: respiratory distress, wheezes, rales, rhonchi, stridor Cardiovascular Exam: Present: regular rate, normal rhythm, normal heart sounds. Absent: systolic murmur, diastolic murmur, rubs, gallop, clicks GI/Abdominal exam: Present: soft, normal bowel sounds. Absent: distended, tenderness, guarding, rebound, rigid Extremities exam: Present: full ROM, tenderness (Proximal radius and ulna), normal capillary refill, other (Soft tissue swelling noted to the right hand. Radial pulses 2+. Skin is pink, warm, dry. Cap refill less than 3 seconds.). Absent: normal inspection, pedal edema, joint swelling, calf tenderness Back exam: Present: normal inspection. Absent: vertebral tenderness Neurological exam: Present: alert, oriented X3, CN II-XII intact Psychiatric exam: Present: normal affect, normal mood Skin exam: Present: warm, dry, intact, normal color. Absent: rash Course Vital Signs 04/18/21 09:32 Temperature 98.5 F Pulse Rate 80 Respiratory 18 Rate Blood Pressure 149/82 O2 Sat by Pulse 96 Oximetry Procedures - Orthopedic Splinting/Casting Injury #1 Side: right Upper Extremity Injury Location: wrist Upper Extremity Immobilizer: thumb spica, Michael wrap, synthetic pre-padded splint Additional Comments: Neurovascular status intact after splint application. Skin to the fingers is pink, warm, dry. Cap refill less than 3 seconds. Medical Decision Making - Medical Decision Making 86-year-old female patient presents to the emergency department today for evaluation of injury to the right wrist. She had a fall last night. Physical examination did reveal tenderness over the distal radius and ulna. No anatomical snuffbox tenderness. Neurovascular status is intact. She has swelling to the hand. X-ray of the right wrist was obtained and showed widening of the scapholunate joint consistent with ligamentous injury. Patient is placed a thumb spica splint. She'll be discharged follow up with the onboarding specialist for further evaluation as soon as possible. Return parameters were discussed in detail. She verbalizes understanding and agrees with this plan. My attending is Dr. Duggan. - Radiology Data Radiology results: report reviewed, image reviewed 4 views of the right wrist are obtained. Report reviewed in its entirety. Impression by Dr. Gallegos shows mild widening of the scapholunate interval. Correlate for age indeterminate injury to the scapholunate ligament. 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 Otherwise no acute osseous ab domen abnormalities seen. Disposition Clinical Impression: Scapholunate ligament injury, no instability Disposition: HOME SELF-CARE Condition: Good Instructions (If sedation given, give patient instructions): Wrist Injury (ED) Additional Instructions: Keep splint in place. Follow up with onboarding specialist for further evaluation as soon as possible. Return to the emergency department for evaluation for any new, worsening, or concerning symptoms. Is patient prescribed a controlled substance at d/c from ED?: No Referrals: Raiza Kaufman MD [Primary Care Provider] - 1-2 days Mervin Ward DO [Doctor of Osteopathic Medicine] - 1-2 days Time of Disposition: 10:55
--- NOTE | 2021-04-18 10:38 | XR ---
EXAMINATION TYPE: XR wrist complete RT DATE OF EXAM: 04/18/2021 COMPARISON: NONE HISTORY: 86-year-old female right wrist pain from fall, injury TECHNIQUE: 4 views FINDINGS: There is mild widening of the scapholunate interval at 2.5 mm. The radiocarpal and distal radial ulna r joint appear intact. Moderate degenerative change first CMC joint. Otherwise, no acute fracture, almendarez bluxation, dislocation. IMPRESSION: Mild widening of the scapholunate interval. Correlate for age indeterminate injury to the scapholunat e ligament. 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 Otherwise, no acute osseous abno rmality seen.
== END 2021-04-18 11:09 | disposition home or self-care (01) ==
LOC: EC 09:26
DX: S63.391A Traumatic rupture of other ligament of right wrist, initial encounter (principal); E11.36 Type 2 diabetes mellitus with diabetic cataract; K21.9 Gastro-esophageal reflux disease without esophagitis; E78.5 Hyperlipidemia, unspecified; I10 Essential (primary) hypertension; E07.9 Disorder of thyroid, unspecified; F41.9 Anxiety disorder, unspecified; F32.9 Major depressive disorder, single episode, unspecified; Z79.82 Long term (current) use of aspirin; Z88.1 Allergy status to other antibiotic agents; Z88.0 Allergy status to penicillin; Z88.2 Allergy status to sulfonamides; Z88.5 Allergy status to narcotic agent; Z86.73 Personal history of transient ischemic attack (TIA), and cerebral infarction without residual deficits; Z90.49 Acquired absence of other specified parts of digestive tract; W10.8XXA Fall (on) (from) other stairs and steps, initial encounter
CPT/HCPCS: 99283; 96372; 29125; 73110; J1885

== ENCOUNTER → 2021-05-01 | Outpatient (CLI) | payer MEDICARE, BC ==
--- NOTE | 2021-05-01 12:16 | MM ---
Reason for exam: additional evaluation requested from prior study. Last mammogram was performed 1 year ago. History: Patient is postmenopausal. Ultrasound-guided cyst aspiration of the left breast, April 16, 1999. Benign excisional biopsy of the left breast. Physical Findings: Nurse did not find any significant physical abnormalities on exam. MG 3D Diag Mammo W/Cad REGINALD Bilateral CC and MLO view(s) were taken. Prior study comparison: May 07, 2020, bilateral MG 3d screening mammo w/cad. September 27, 2018, left breast MG 3d diag mammo w/cad LT. The breast tissue is heterogeneously dense. This may lower the sensitivity of mammography. Suspicious mass 11 o'clock left breast 11 x 8mm versus 11 x 8mm previously. These results were verbally communicated with the patient and result sheet given to the patient on 05/01/21. ASSESSMENT: Suspicious, BI-RAD 4 RECOMMENDATION: Ultrasound core biopsy of the left breast. Called Dr. Kaufman's office with mammographic findings. Patient has date and time already scheduled. PRELIMINARY REPORT CALLED AND FAXED TO DR. KAUFMAN ON 05/01/21.
== END | disposition home or self-care (01) ==
LOC: RADMAMWWP 04-30 09:34
PROVIDERS: ATTEND Internal Medicine
DX: Z12.31 Encounter for screening mammogram for malignant neoplasm of breast (principal); R92.8 Other abnormal and inconclusive findings on diagnostic imaging of breast; Z78.0 Asymptomatic menopausal state
CPT/HCPCS: 77066; G0279; 77062

== ENCOUNTER → 2022-04-17 | Outpatient (CLI) | payer MEDICARE, BC ==
--- NOTE | 2022-04-17 10:48 | XR ---
EXAMINATION TYPE: XR chest 2V DATE OF EXAM: 04/17/2022 10:25 AM COMPARISON: Chest radiographs from 06/24/2018 TECHNIQUE: XR chest 2V Frontal and lateral views of the chest. CLINICAL INDICATION:Female, 87 years old with history of R05.9 Cough; FINDINGS: Lungs/Pleura: There is no evidence of pleural effusion, focal consolidation, or pneumothorax. Pulmonary vascularity: Unremarkable. Heart/mediastinum: Cardiomediastinal silhouette is unremarkable. Musculoskeletal: No acute osseous pathology. IMPRESSION: No acute cardiopulmonary disease/process.
== END | disposition home or self-care (01) ==
LOC: RADXRMAIN 10:11
PROVIDERS: ATTEND Internal Medicine
DX: R05.9 Cough, unspecified (principal)
CPT/HCPCS: 71046

== ENCOUNTER → 2022-05-02 | Outpatient (CLI) | payer MEDICARE, BC ==
--- NOTE | 2022-05-02 14:18 | USB ---
Reason for Exam: Additional evaluation requested from abnormal screening. Patient History: Menarche at age 14. First Full-Term at age 20. Postmenopausal. Benign Excisional Biopsy on the left side. 04/16/1999, Ultrasound-Guided Cyst Aspiration on the Left side. Technique: Method: Targeted. Prior Study Comparison: 05/07/2020 Bilateral Screening Mammogram, [facility]. 05/01/2021 Bilateral Diagnostic Mammogram, [facility]. 04/30/2022 Bilateral MG 3D screening mammo w/cad, [facility]. Findings: The upper inner quadrant of the left breast and the axilla of the left breast were scanned. Finding 1: Mass. Laterality: Left. Non-Palpable Abnormality visualized. Size 11 x 8 x 12 mm. 11 O'clock Quadrant: Upper inner. 8 cm cm from nipple. Shape: Irregular. Margin: Spiculated. There is a lobulated hypoechoic area the 11:00 position 8 cm from the nipple. This has posterior shadowing. This is taller than wide. Current measurements are 1.2 x 1.1 x 0.8 cm. This area was present previously but smaller, previous measurement 0.6 x 0.2 x 0.5 cm 03/31/2018. This has peripheral vascularity evident. Findings are highly suggestive for malignancy. Biopsy was discussed with the patient. Patient has had resistance to biopsy in the past but with discussion at this time, thought she would proceed to biopsy. Overall Assessment: Highly suggestive of malignancy, BI-RAD 5 Management: Ultrasound Core Biopsy of the left breast. A clinical breast exam by your physician is recommended on an annual basis and results should be correlated with mammographic findings. Electronically signed and approved by: Maneul Avila D.O. Radiologis
== END | disposition home or self-care (01) ==
LOC: RADUSWWP 13:22
PROVIDERS: ATTEND Internal Medicine
DX: N63.12 Unspecified lump in the right breast, upper inner quadrant (principal); Z78.0 Asymptomatic menopausal state

== ENCOUNTER → 2022-05-14 | Day surgery (SDC) | payer MEDICARE, BC ==
--- NOTE | 2022-05-23 12:27 | USB ---
Pathology Description: Location: 11 o'clock. Marker Left Behind. Needle Type: Mammotome Cores: 3 The procedure of ultrasound guided core biopsy was explained to the patient. Benefits, alternatives, and risks were discussed. An informed consent was then obtained. A timeout was performed. The patient was placed in supine positioning for imaging and for the procedure. The overlying skin was prepped and draped in usual sterile fashion. Lidocaine was used as anesthetic into the skin and subcutaneous tissue up to area of concern in the left breast. A small skin donis was made with surgical scalpel. Under ultrasound guidance, a 12-gauge vacuum assisted biopsy gun device was used to obtain 3 core samples. A biopsy clip was left in lesion. Hydromark core marker was placed. The patient tolerated the procedure well without any immediate complication. The patient was kept in the radiology department for short stay after the procedure and then discharged home in stable condition. Postprocedure mammogram: The patient was transferred to mammography for physician ordered post procedure mammogram for clip placement verification. Impression: Successful ultrasound guided core biopsy of area of concern in the left breast, full pathology results to follow. Recommendations: 1. Recommendations are pending pathology results. Pathology Results: Result: Malignant, Invasive ductal carcinoma. LEFT BREAST, 11:00 POSITION, ULTRASOUND GUIDED CORE BIOPSY: Invasive ductal carcinoma, Grade 1 (see surgical pathology cancer case summary and comment). Tissue Density: Left: There are scattered fibroglandular densities. Overall Assessment: Malignant Assessment: MG diagnostic mammo LT wo CAD. - Left: Known biopsy proven malignancy, BI-RAD 6. Management: Surgical Consultation of the left breast. Electronically signed and approved by: Manuel Avila D.O. Radiologis
== END ==
LOC: RADUSWWP 07:36
PROVIDERS: ATTEND Surgery
DX: C50.912 Malignant neoplasm of unspecified site of left female breast (principal)
CPT/HCPCS: 88305; 88342; 88341; 77065; 19083; A4648